=== PATIENT | female | born 1935 | race Two or more races ===

== ENCOUNTER 2020-05-06 12:38 | Inpatient (IN) | payer MEDICAID ==
[~2020-05-06] VITALS: Ht 149.9 cm; Wt 52.2 kg
[2020-05-06] MEDS ORDERED: LABETALOL HCL 5 MG/ML 4ML SYRINGE IV ONE ×2 (13:00→14:45)
[2020-05-06] MEDS ORDERED: SODIUM CHLORIDE 0.9% 1,000 ML IV ONE (13:00)
[2020-05-06 13:37] LABS: Basophils # (auto) 0 10 ^3/uL (0-0.2); Basophils % (auto) 0.5 % (0.0-2.0); Eosinophils # (auto) 0.6 10 ^3/uL (0-0.8); Eosinophils % (auto) 6.6 % (0.0-7.0); Hematocrit 42.8 % (36.0-46.0); Hemoglobin 14.2 g/dL (12.2-16.2); Lymphocytes # (auto) 2.7 10 ^3/uL (0.4-5.4); Lymphocytes % (auto) 28.8 % (10.0-50.0); Mean Corpuscular Hemoglobin 30.4 pg (28.0-32.0); Mean Corpuscular Hgb Conc. 33.1 g/dL (32.0-36.0); Mean Corpuscular Volume 91.9 fL (80.0-100.0); Monocytes # (auto) 0.5 10 ^3/uL (0-1.3); Monocytes % (auto) 5.2 % (0.0-12.0); Neutrophils # (auto) 5.5 10 ^3/uL (1.6-8.6); Neutrophils % (auto) 58.9 % (37.0-80.0); Nucleated Red Blood Cells % 0.1 %; Platelet Count (auto) 229 10^3/uL (140-450); Red Blood Cells 4.66 10^6/uL (4.0-5.20); Red Cell Distribution Width 14.2 % (11.8-14.3); White Blood Cell 9.3 10^3/uL (4.4-10.8)
[2020-05-06 13:49] LABS: INR 1.02 (0.9-1.15); Partial Thromboplastin Time 27.3 sec (23.0-31.2)
[2020-05-06 13:52] LABS: Albumin 3.6 g/dL (3.4-5.0); Anion Gap 7 (5-15); Blood Urea Nitrogen 19 mg/dL (7-18); Calcium 8.6 mg/dL (8.5-10.1); Carbon Dioxide 24 mmol/L (21-32); Chloride 104 mmol/L (98-107); Glucose 171 mg/dL (74-106); Potassium 4.3 mmol/L (3.5-5.1); Sodium 135 mmol/L (136-145)
[2020-05-06] MEDS ORDERED: IOHEXOL 350 MG/ML 100ML IJ ONE (13:55)
[2020-05-06 13:57] LABS: Alanine Aminotransferase 18 U/L (13-56); Alkaline Phosphatase 67 U/L (45-117); Aspartate Aminotransferase 14 U/L (15-37); BUN/Creatinine Ratio 20.9; Bilirubin, Total 0.4 mg/dL (0.2-1.0); GFR African American 76 mL/min; GFR Non-African American 62 mL/min; Total Protein 7.6 g/dL (6.4-8.2)
[2020-05-06] MEDS ORDERED: ENALAPRILAT 1.25 MG/ML-1ML VIAL IV ONE (14:45)
[2020-05-06 15:13] LABS: Urine Bacteria NONE SEEN /hpf (None Seen); Urine Blood Negative /uL (Negative); Urine Specific Gravity 1.022 (1.001-1.035); Urine WBC <1 /hpf (0 - 5)
[2020-05-06] MEDS ORDERED: MORPHINE SULF INJ 2 MG/ML SYRINGE 1ML IV PRN (16:15)
[2020-05-06] MEDS ORDERED: DEXTROSE (50%) 50ML SYRG IV PRN (16:15)
[2020-05-06] MEDS ORDERED: LISINOPRIL 20 MG TAB PO ONE (16:15)
[2020-05-06] MEDS: amLODIPine BESYLATE 5 MG TAB PO SCH (16:15)
[2020-05-06] MEDS ORDERED: NITROGLYCERIN 0.4 MG SL TAB SL PRN (16:15)
[2020-05-06] MEDS: InsuLIN REG 1unit/0.01ml Soln (100units/ml) SC SCH ×2 (17:00→21:54)
[2020-05-06] MEDS: ACCU-CHEK COMFORT CURVE STRIP VI SCH ×2 (17:00→21:54)
[2020-05-07] MEDS: InsuLIN REG 1unit/0.01ml Soln (100units/ml) SC SCH ×3 (06:31→17:00)
[2020-05-07] MEDS: ACCU-CHEK COMFORT CURVE STRIP VI SCH ×3 (06:32→17:00)
[2020-05-07] MEDS ORDERED: LISINOPRIL 20 MG TAB PO SCH (10:00)
[2020-05-07] MEDS: amLODIPine BESYLATE 5 MG TAB PO SCH (10:10)
[2020-05-07] MEDS ORDERED: AML5T PO (18:49)
[2020-05-07] MEDS ORDERED: LISI-646 PO (18:49)
[2020-05-07] MEDS ORDERED: METO25TA5 PO (18:54)
[2020-05-07] MEDS ORDERED: METF-370 PO (18:54)
[2020-05-07 19:01] VITALS: BP 142/59
== END 2020-05-07 19:37 | disposition home or self-care (01) | DRG 199 ==
LOC: ER 12:38 → TELE 13:25
PROVIDERS: ADMIT Internal Medicine; ATTEND Internal Medicine
DX: I16.0 Hypertensive urgency (principal); I10 Essential (primary) hypertension; Z90.49 Acquired absence of other specified parts of digestive tract; E04.1 Nontoxic single thyroid nodule; Z79.84 Long term (current) use of oral hypoglycemic drugs; E11.9 Type 2 diabetes mellitus without complications; E66.01 Morbid (severe) obesity due to excess calories; R00.1 Bradycardia, unspecified; T50.905A Adverse effect of unspecified drugs, medicaments and biological substances, initial encounter
CPT/HCPCS: 36415; 70450; 71045; 71275; 80053; 81001; 82962; 83880; 84484; 85025; 85610; 85730; 93005; 93306; 96360; 99291; G0378; J1815; J3490

== ENCOUNTER → 2020-10-04 | Outpatient (CLI) | payer MEDICAID ==
[~2020-10-04] MED LIST: AML5T PO; LISI-646 PO; METF-370 PO; METO25TA5 PO
== END | disposition home or self-care (01) ==
LOC: Rad HDHVI 14:51
PROVIDERS: ATTEND Internal Medicine
DX: I73.9 Peripheral vascular disease, unspecified (principal); E78.5 Hyperlipidemia, unspecified
CPT/HCPCS: 93925

== ENCOUNTER 2020-11-25 19:20 | Inpatient (IN) | payer MEDICAID ==
[~2020-11-25] VITALS: Ht 139.7 cm; Wt 52.2 kg
[~2020-11-25 19:20] MED LIST changes: -LISI-646 PO; +LISI20TA28 PO
[2020-11-25 20:37] LABS: Basophils # (auto) 0.1 10 ^3/uL (0-0.2); Basophils % (auto) 0.7 % (0.0-2.0); Eosinophils # (auto) 0.1 10 ^3/uL (0-0.8); Eosinophils % (auto) 1.6 % (0.0-7.0); Hematocrit 37.2 % (36.0-46.0); Hemoglobin 12.3 g/dL (12.2-16.2); Lymphocytes # (auto) 2.5 10 ^3/uL (0.4-5.4); Lymphocytes % (auto) 28.1 % (10.0-50.0); Mean Corpuscular Hemoglobin 30.3 pg (28.0-32.0); Mean Corpuscular Hgb Conc. 33.1 g/dL (32.0-36.0); Mean Corpuscular Volume 91.6 fL (80.0-100.0); Monocytes # (auto) 0.8 10 ^3/uL (0-1.3); Monocytes % (auto) 8.9 % (0.0-12.0); Neutrophils # (auto) 5.3 10 ^3/uL (1.6-8.6); Neutrophils % (auto) 60.7 % (37.0-80.0); Nucleated Red Blood Cells % 0.2 %; Red Blood Cells 4.07 10^6/uL (4.0-5.20); Red Cell Distribution Width 14.3 % (11.8-14.3); White Blood Cell 8.8 10^3/uL (4.4-10.8)
[2020-11-25 21:00] LABS: Albumin 3.6 g/dL (3.4-5.0); Anion Gap 9 (5-15); Blood Urea Nitrogen 15 mg/dL (7-18); Calcium 8.7 mg/dL (8.5-10.1); Carbon Dioxide 24 mmol/L (21-32); Chloride 102 mmol/L (98-107); Glucose 191 mg/dL (74-106); Potassium 3.7 mmol/L (3.5-5.1); Sodium 135 mmol/L (136-145)
[2020-11-25 21:02] LABS: Alanine Aminotransferase 17 U/L (13-56); Aspartate Aminotransferase 13 U/L (15-37); BUN/Creatinine Ratio 13.9; GFR African American 62 mL/min; GFR Non-African American 51 mL/min
[2020-11-25 21:03] LABS: CRP High Sensitivity 0.45 mg/dL (< 0.3); Magnesium 1.8 mg/dL (1.6-2.6)
[2020-11-25 21:07] LABS: Alkaline Phosphatase 79 U/L (45-117); Bilirubin, Total 0.4 mg/dL (0.2-1.0); Total Protein 7.7 g/dL (6.4-8.2)
[2020-11-25 23:49] LABS: Lactic Acid w/Reflex 2.2 mmol/L (0.4-2.0)
[2020-11-26 02:10] LABS: Urine Bacteria NONE SEEN /hpf (None Seen); Urine Blood Negative /uL (Negative); Urine Specific Gravity 1.009 (1.001-1.035); Urine WBC 2 /hpf (0 - 5)
[2020-11-26] MEDS ORDERED: ENALAPRILAT 1.25 MG/ML-1ML VIAL IV ONE (04:30)
[2020-11-26] MEDS ORDERED: FUROSEMIDE 20 MG/2 ML VIAL IV ONE (04:30)
[2020-11-26] MEDS ORDERED: NITROGLYCERIN 0.4MG/HR TOPICAL PATCH TD ONE (04:30)
[2020-11-26] MEDS ORDERED: MORPHINE SULFATE INJECTION 2 MG/ML SYRG IV PRN (05:15)
[2020-11-26] MEDS ORDERED: ALBUTEROL SULF 2.5 MG/0.5ML(0.5%) NEB SOLN NEB PRN (05:15)
[2020-11-26] MEDS ORDERED: NITROGLYCERIN 0.4 MG SL TAB SL PRN (05:15)
[2020-11-26] MEDS ORDERED: DEXTROSE (50%) 50ML SYRG IV PRN (05:45)
[2020-11-26 06:59] VITALS: BP 131/64
[2020-11-26] MEDS: InsuLIN REG 1unit/0.01ml Soln (100units/ml) SC SCH ×4 (07:00→22:00)
[2020-11-26] MEDS: ACCU-CHEK COMFORT CURVE STRIP VI SCH ×4 (07:06→22:00)
[2020-11-26 08:50] LABS: BUN/Creatinine Ratio 17.9; Calcium 8.2 mg/dL (8.5-10.1); Potassium 3.5 mmol/L (3.5-5.1)
[2020-11-26] MEDS: FUROSEMIDE 20 MG/2 ML VIAL IV SCH ×2 (10:00→22:00)
[2020-11-26] MEDS: LISINOPRIL 20 MG TAB PO SCH (10:00)
[2020-11-26] MEDS: amLODIPine BESYLATE 5 MG TAB PO SCH ×2 (10:00→22:00)
[2020-11-26 10:15] VITALS: BP 131/66
[2020-11-26 10:30] VITALS: BP 107/55
[2020-11-26] MEDS ORDERED: ASPI1TAB20 PO (11:37)
[2020-11-26] MEDS ORDERED: AMLO-489 PO (11:37)
[2020-11-26] MEDS ORDERED: METO-158 PO (11:37)
[2020-11-26] MEDS ORDERED: MAGN400T40 PO (11:37)
[2020-11-26] MEDS ORDERED: CILO100T PO (11:37)
[2020-11-26] MEDS ORDERED: HYDR25TA4 PO (11:37)
[2020-11-26] MEDS ORDERED: CHLO25TA2 PO (11:37)
[2020-11-26] MEDS ORDERED: ATOR20TA50 PO (11:37)
[2020-11-26 16:44] VITALS: BP 126/62
[2020-11-26 22:03] VITALS: BP 124/61
[2020-11-27 05:11] VITALS: BP 135/66
[2020-11-27] MEDS: ACCU-CHEK COMFORT CURVE STRIP VI SCH ×4 (06:21→22:00)
[2020-11-27] MEDS: InsuLIN REG 1unit/0.01ml Soln (100units/ml) SC SCH ×4 (06:21→22:00)
[2020-11-27 06:54] LABS: Basophils # (auto) 0 10 ^3/uL (0-0.2); Basophils % (auto) 0.6 % (0.0-2.0); Eosinophils # (auto) 0.2 10 ^3/uL (0-0.8); Eosinophils % (auto) 2.7 % (0.0-7.0); Hematocrit 35.8 % (36.0-46.0); Hemoglobin 12.1 g/dL (12.2-16.2); Lymphocytes # (auto) 2.3 10 ^3/uL (0.4-5.4); Lymphocytes % (auto) 28.6 % (10.0-50.0); Mean Corpuscular Hemoglobin 31.1 pg (28.0-32.0); Mean Corpuscular Volume 91.5 fL (80.0-100.0); Monocytes # (auto) 0.9 10 ^3/uL (0-1.3); Monocytes % (auto) 11.6 % (0.0-12.0); Neutrophils # (auto) 4.5 10 ^3/uL (1.6-8.6); Neutrophils % (auto) 56.5 % (37.0-80.0); Nucleated Red Blood Cells % 0.1 %; Red Blood Cells 3.91 10^6/uL (4.0-5.20); Red Cell Distribution Width 14.2 % (11.8-14.3)
[2020-11-27 06:59] LABS: Calcium 8.3 mg/dL (8.5-10.1); Magnesium 1.8 mg/dL (1.6-2.6); Potassium 3.4 mmol/L (3.5-5.1)
[2020-11-27 07:00] LABS: BUN/Creatinine Ratio 19.7
[2020-11-27 08:00] VITALS: BP 124/61
[2020-11-27 09:00] VITALS: BP 124/63
[2020-11-27] MEDS: FUROSEMIDE 20 MG/2 ML VIAL IV SCH ×2 (09:21→17:03)
[2020-11-27] MEDS: amLODIPine BESYLATE 5 MG TAB PO SCH ×2 (09:21→22:00)
[2020-11-27] MEDS: LISINOPRIL 20 MG TAB PO SCH (09:22)
[2020-11-27] MEDS ORDERED: VANCOMYCIN PER PHARMACY 0 MG IV SCH (11:30)
[2020-11-27] MEDS: ENOXAPARIN SOD 40 MG/0.4 ML SYRINGE SC SCH (11:55)
[2020-11-27 13:00] VITALS: BP 131/60
[2020-11-27] MEDS: VANCOMYCIN 500 MG in D5W 5% 100 ML IV SCH ×2 (13:26→23:00)
[2020-11-27] MEDS ORDERED: IOHEXOL 350 MG/ML 100ML IJ ONE (14:51)
[2020-11-27 17:00] VITALS: BP 122/61
[2020-11-27 22:18] VITALS: BP 125/63
[2020-11-28 05:11] VITALS: BP 133/56
[2020-11-28] MEDS: FUROSEMIDE 20 MG/2 ML VIAL IV SCH ×2 (06:00→17:32)
[2020-11-28] MEDS: InsuLIN REG 1unit/0.01ml Soln (100units/ml) SC SCH ×3 (06:44→17:34)
[2020-11-28] MEDS: ACCU-CHEK COMFORT CURVE STRIP VI SCH ×3 (06:44→17:32)
[2020-11-28 07:36] LABS: INR 1.03 (0.9-1.15)
[2020-11-28 09:00] VITALS: BP 112/55
[2020-11-28] MEDS: VANCOMYCIN 500 MG in D5W 5% 100 ML IV SCH (09:02)
[2020-11-28] MEDS: ENOXAPARIN SOD 40 MG/0.4 ML SYRINGE SC SCH (09:03)
[2020-11-28] MEDS: LISINOPRIL 20 MG TAB PO SCH (09:03)
[2020-11-28] MEDS: amLODIPine BESYLATE 5 MG TAB PO SCH (09:03)
[2020-11-28] MEDS ORDERED: levoFLOXacin 500 MG TAB PO ONE (10:30)
[2020-11-28 11:21] LABS: Calcium 8.4 mg/dL (8.5-10.1); Potassium 3.2 mmol/L (3.5-5.1)
[2020-11-28 11:23] LABS: BUN/Creatinine Ratio 15.2
[2020-11-28 13:00] VITALS: BP 106/55
[2020-11-28 16:30] VITALS: BP 137/60
[2020-11-28] MEDS ORDERED: HYDROcodone-ACET 5/325MG TAB PO PRN (17:15)
[2020-11-28 20:09] VITALS: BP 108/51
[2020-11-29] MEDS ORDERED: levoFLOXacin 250 MG TAB PO SCH (10:00)
[2020-11-29] MEDS ORDERED: levoFLOXacin 500 MG TAB PO SCH (10:00)
[2020-11-29] MEDS ORDERED: POTASSIUM CHL 20 Meq TABLET PO SCH (10:00)
[2020-11-29] MEDS ORDERED: ENOXAPARIN SOD 30 MG/0.3 ML SYRINGE SC SCH (10:00)
[2020-12-09] MEDS ORDERED: FAMO-12 PO (15:44)
[2020-12-09] MEDS ORDERED: METF-371 PO (15:44)
[2020-12-09] MEDS ORDERED: HYDR25TA5 PO (15:44)
[2020-12-09] MEDS ORDERED: DAPA1TAB4 PO (15:44)
[2020-12-09] MEDS ORDERED: ACET-1156 PO (15:44)
[2020-12-09] MEDS ORDERED: CHLO25TA2 PO (15:44)
[2020-12-09] MEDS ORDERED: BENA10TA15 PO (15:44)
[2020-12-09] MEDS ORDERED: CILO50TA PO (15:44)
== END 2020-11-28 21:29 | disposition home health service (06) | DRG 139 ==
LOC: ER 19:20 → TELE 11-26 05:15 → TELE-CENTR 11-26 10:56
PROVIDERS: ADMIT Internal Medicine; ATTEND Internal Medicine
DX: J18.9 Pneumonia, unspecified organism (principal); J96.01 Acute respiratory failure with hypoxia; I50.33 Acute on chronic diastolic (congestive) heart failure; R78.81 Bacteremia; J90 Pleural effusion, not elsewhere classified; B95.7 Other staphylococcus as the cause of diseases classified elsewhere; I11.0 Hypertensive heart disease with heart failure; I27.20 Pulmonary hypertension, unspecified; E11.51 Type 2 diabetes mellitus with diabetic peripheral angiopathy without gangrene; Z20.822 Contact with and (suspected) exposure to COVID-19; E87.6 Hypokalemia; E66.9 Obesity, unspecified; J98.11 Atelectasis; E78.00 Pure hypercholesterolemia, unspecified; E78.5 Hyperlipidemia, unspecified; Z90.49 Acquired absence of other specified parts of digestive tract; Z68.30 Body mass index [BMI] 30.0-30.9, adult; Z79.899 Other long term (current) drug therapy
CPT/HCPCS: 36415; 36600; 71045; 71275; 80048; 80053; 81001; 82805; 82962; 83605; 83735; 83880; 84484; 85025; 85379; 85610; 86141; 87040; 87077; 87186; 87426; 93005; 96374; 96375; 97163; G0378; J1815; J7060

== ENCOUNTER 2020-12-14 07:56 | Day surgery (SDC) | payer MEDICAID ==
[~2020-12-14] VITALS: Ht 137.2 cm; Wt 55.3 kg
[~2020-12-14 07:56] MED LIST changes: +ACET-1156 PO; -AML5T PO; +AMLO-489 PO; +ASPI-231 PO; +ATOR20TA50 PO; +BENA10TA9 PO; +CHLO25TA2 PO; +CILO50TA PO; +DAPA1TAB4 PO; +FAMO-12 PO; +HYDR25TA5 PO; -LISI20TA28 PO; +MAGN400T40 PO; -METF-370 PO; +METF-371 PO; +METO-158 PO; -METO25TA5 PO
[2020-12-14] MEDS ORDERED: IODIXANOL 320MG/ML 100ML BTL IV ONE (09:33)
[2020-12-14] MEDS ORDERED: ANGIOMAX 250 MG VIAL IV ONE ×2 (09:33→11:34)
[2020-12-14] MEDS ORDERED: fentaNYL CITRATE 100 MCG/2 ML VL ONE ×2 (09:33→12:15)
[2020-12-14] MEDS ORDERED: MIDAZOLAM HCL 1MG/1ML-2 ML VIAL ONE (09:33)
[2020-12-14] MEDS ORDERED: LIDOCAINE 2%HCL (LOCAL ANESTH.) INJ 20ML MDV ONE (09:33)
[2020-12-14] MEDS ORDERED: SODIUM CHL 0.9% 50 ML ONE ×2 (09:34→11:34)
[2020-12-14] MEDS ORDERED: NITROGLYCERIN 5MG/ML 10ML VIAL IV ONE (09:35)
[2020-12-14] MEDS ORDERED: CLOPIDOGREL 300 MG TAB ONE (12:14)
[2020-12-14] MEDS ORDERED: ASPirin 81 mg TAB ONE (12:14)
[2020-12-14] MEDS ORDERED: ACETAMINOPHEN 500 MG TAB PO PRN (13:15)
[2020-12-14] MEDS ORDERED: ONDANSETRON HCL 4 MG/2 ML VIAL IV PRN (13:15)
== END 2020-12-14 17:02 | disposition home or self-care (01) ==
LOC: CATH 07:56
PROVIDERS: ATTEND Internal Medicine
DX: I70.212 Atherosclerosis of native arteries of extremities with intermittent claudication, left leg (principal); I25.10 Atherosclerotic heart disease of native coronary artery without angina pectoris; I10 Essential (primary) hypertension; E78.5 Hyperlipidemia, unspecified; E11.9 Type 2 diabetes mellitus without complications; Z98.890 Other specified postprocedural states; Z79.899 Other long term (current) drug therapy; Z79.82 Long term (current) use of aspirin
CPT/HCPCS: 37224; 37228; 75716; C1725; C1760; C1769; C1887; C1894; J0583; J1644; J2250; J3010; J7030; Q9967; 99152; 99153; J3490

== ENCOUNTER → 2021-01-13 | Outpatient (CLI) | payer MEDICAID ==
[2021-01-13 09:10] VITALS: BP 142/62
[2021-01-13 09:15] VITALS: BP 142/62
[2021-01-13 11:29] LABS: Basophils # (auto) 0.1 10 ^3/uL (0-0.2); Basophils % (auto) 0.7 % (0.0-2.0); Eosinophils # (auto) 0.3 10 ^3/uL (0-0.8); Hematocrit 39.8 % (36.0-46.0); Hemoglobin 13.5 g/dL (12.2-16.2); Lymphocytes # (auto) 3.1 10 ^3/uL (0.4-5.4); Lymphocytes % (auto) 35.4 % (10.0-50.0); Mean Corpuscular Hemoglobin 30.9 pg (28.0-32.0); Mean Corpuscular Hgb Conc. 33.9 g/dL (32.0-36.0); Mean Corpuscular Volume 91.3 fL (80.0-100.0); Monocytes # (auto) 0.6 10 ^3/uL (0-1.3); Monocytes % (auto) 7.1 % (0.0-12.0); Neutrophils # (auto) 4.6 10 ^3/uL (1.6-8.6); Neutrophils % (auto) 52.8 % (37.0-80.0); Platelet Count (auto) 233 10^3/uL (140-450); Red Blood Cells 4.36 10^6/uL (4.0-5.20); White Blood Cell 8.6 10^3/uL (4.4-10.8)
[2021-01-13 11:41] LABS: INR 0.97 (0.9-1.15); Partial Thromboplastin Time 26.8 sec (23.0-31.2)
[2021-01-13 11:46] LABS: Potassium 3.7 mmol/L (3.5-5.1)
[2021-01-13 11:50] LABS: BUN/Creatinine Ratio 25.3; Calcium 9.1 mg/dL (8.5-10.1)
== END | disposition home or self-care (01) ==
LOC: Rad HDHVI 08:54
PROVIDERS: ATTEND Internal Medicine
DX: I70.0 Atherosclerosis of aorta (principal); I51.7 Cardiomegaly; Z01.812 Encounter for preprocedural laboratory examination
CPT/HCPCS: 36415; 71046; 80048; 85025; 85610; 85730; G0463

== ENCOUNTER → 2021-02-17 | Outpatient (CLI) | payer MEDICAID | END | disposition home or self-care (01) | LOC: Rad HDHVI 15:07 | PROVIDERS: ATTEND Internal Medicine | DX: I10 Essential (primary) hypertension (principal); E78.5 Hyperlipidemia, unspecified | CPT/HCPCS: 93925 ==

== ENCOUNTER 2021-02-24 11:01 | Emergency (ER) | payer MEDICAID ==
[~2021-02-24] VITALS: Ht 137.2 cm; Wt 53.1 kg
[2021-02-24 11:56] LABS: Basophils # (auto) 0.1 10 ^3/uL (0-0.2); Basophils % (auto) 0.7 % (0.0-2.0); Eosinophils # (auto) 0.1 10 ^3/uL (0-0.8); Eosinophils % (auto) 1.9 % (0.0-7.0); Hematocrit 37.4 % (36.0-46.0); Hemoglobin 12.9 g/dL (12.2-16.2); Lymphocytes # (auto) 2.5 10 ^3/uL (0.4-5.4); Lymphocytes % (auto) 33.2 % (10.0-50.0); Mean Corpuscular Hemoglobin 30.3 pg (28.0-32.0); Mean Corpuscular Hgb Conc. 34.5 g/dL (32.0-36.0); Mean Corpuscular Volume 87.9 fL (80.0-100.0); Monocytes # (auto) 0.5 10 ^3/uL (0-1.3); Monocytes % (auto) 7.3 % (0.0-12.0); Neutrophils # (auto) 4.2 10 ^3/uL (1.6-8.6); Neutrophils % (auto) 56.9 % (37.0-80.0); Nucleated Red Blood Cells % 0.1 %; Red Blood Cells 4.26 10^6/uL (4.0-5.20); Red Cell Distribution Width 14.1 % (11.8-14.3); White Blood Cell 7.5 10^3/uL (4.4-10.8)
[2021-02-24 12:09] LABS: Urine Bacteria NONE SEEN /hpf (None Seen); Urine Blood Negative /uL (Negative); Urine Specific Gravity 1.011 (1.001-1.035); Urine WBC 2 /hpf (0 - 5)
[2021-02-24 12:18] LABS: Blood Urea Nitrogen 15 mg/dL (7-18); Chloride 87 mmol/L (98-107); Glucose 230 mg/dL (74-106); Potassium 3.7 mmol/L (3.5-5.1); Sodium 122 mmol/L (136-145)
[2021-02-24 12:31] LABS: Alanine Aminotransferase 20 U/L (13-56); Albumin 4.2 g/dL (3.4-5.0); Anion Gap 9 (5-15); BUN/Creatinine Ratio 19.2; Calcium 8.8 mg/dL (8.5-10.1); Carbon Dioxide 26 mmol/L (21-32); GFR African American 90 mL/min; GFR Non-African American 74 mL/min; Total Protein 7.8 g/dL (6.4-8.2)
[2021-02-24 12:51] LABS: Alkaline Phosphatase 75 U/L (45-117); Aspartate Aminotransferase 16 U/L (15-37); Bilirubin, Total 0.7 mg/dL (0.2-1.0)
[2021-02-24] MEDS ORDERED: SODIUM CHLORIDE 0.9% 1,000 ML IV ONE (15:45)
[2021-02-24 18:26] VITALS: BP 130/61
== END 2021-02-24 18:27 | disposition home or self-care (01) ==
LOC: ER 11:01
DX: E87.1 Hypo-osmolality and hyponatremia (principal); E86.0 Dehydration; I10 Essential (primary) hypertension; E11.9 Type 2 diabetes mellitus without complications; E78.5 Hyperlipidemia, unspecified; Z90.49 Acquired absence of other specified parts of digestive tract
CPT/HCPCS: 36415; 71045; 80053; 81001; 84484; 85025; 93005; 96360; 99285; J7030

== ENCOUNTER 2021-05-13 18:24 | Inpatient (IN) | payer MEDICAID ==
[~2021-05-13] VITALS: Ht 134.6 cm; Wt 107.3 kg
[~2021-05-13 18:24] MED LIST changes: -ASPI-231 PO; +ASPI1TAB20 PO; +BENA10TA15 PO; -BENA10TA9 PO
[2021-05-13] MEDS ORDERED: ACETAMINOPHEN 325 MG TAB PO ONE (20:45)
[2021-05-13 21:16] LABS: Basophils # (auto) 0 10 ^3/uL (0-0.2); Basophils % (auto) 0.1 % (0.0-2.0); Eosinophils # (auto) 0 10 ^3/uL (0-0.8); Eosinophils % (auto) 0.1 % (0.0-7.0); Hematocrit 41.4 % (36.0-46.0); Hemoglobin 13.5 g/dL (12.2-16.2); Lymphocytes # (auto) 0.8 10 ^3/uL (0.4-5.4); Lymphocytes % (auto) 5.6 % (10.0-50.0); Mean Corpuscular Hemoglobin 29.8 pg (28.0-32.0); Mean Corpuscular Hgb Conc. 32.6 g/dL (32.0-36.0); Mean Corpuscular Volume 91.5 fL (80.0-100.0); Monocytes # (auto) 0.9 10 ^3/uL (0-1.3); Monocytes % (auto) 6.1 % (0.0-12.0); Neutrophils # (auto) 12.4 10 ^3/uL (1.6-8.6); Neutrophils % (auto) 88.1 % (37.0-80.0); Red Blood Cells 4.52 10^6/uL (4.0-5.20); Red Cell Distribution Width 14.1 % (11.8-14.3)
[2021-05-13 21:23] LABS: Urine Bacteria FEW /hpf (None Seen); Urine WBC 11 /hpf (0 - 5)
[2021-05-13 21:28] LABS: Albumin 2.5 g/dL (3.4-5.0); Anion Gap 8 (5-15); Blood Urea Nitrogen 29 mg/dL (7-18); Calcium 7.9 mg/dL (8.5-10.1); Carbon Dioxide 25 mmol/L (21-32); Chloride 92 mmol/L (98-107); Glucose 390 mg/dL (74-106); Lipase 243 U/L (73-393); Magnesium 1.4 mg/dL (1.6-2.6); Potassium 4.2 mmol/L (3.5-5.1); Sodium 125 mmol/L (136-145)
[2021-05-13 21:32] LABS: Urine Blood Normal /uL (Negative); Urine Specific Gravity 1.023 (1.001-1.035)
[2021-05-13 21:35] LABS: Alanine Aminotransferase 22 U/L (13-56); Alkaline Phosphatase 70 U/L (45-117); Aspartate Aminotransferase 7 U/L (15-37); BUN/Creatinine Ratio 23.8; Bilirubin, Total 0.2 mg/dL (0.2-1.0); GFR African American 54 mL/min; GFR Non-African American 44 mL/min; Total Protein 5.8 g/dL (6.4-8.2)
[2021-05-13] MEDS ORDERED: INSULIN LISPRO (HUMAN) 100 UNITS/ML ML SC ONE (21:45)
[2021-05-13] MEDS ORDERED: SODIUM CHLORIDE 0.9% 1,000 ML IV ONE (21:45)
[2021-05-13] MEDS ORDERED: cefTRIAXone 1GM/50ML D5W 50 ML IV ONE (22:00)
[2021-05-14] MEDS ORDERED: MORPHINE SULFATE INJECTION 2 MG/ML SYRG IV PRN ×2
[2021-05-14] MEDS ORDERED: NITROGLYCERIN 0.4 MG SL TAB SL PRN
[2021-05-14] MEDS ORDERED: ACETAMINOPHEN 325 MG TAB PO PRN
[2021-05-14] MEDS ORDERED: ONDANSETRON HCL 4 MG/2 ML VIAL IV PRN
[2021-05-14] MEDS ORDERED: SODIUM CHLORIDE 0.9% 1,000 ML IV ONE
[2021-05-14] MEDS: MAGNESIUM SULFATE 1GM/100ML 100 ML IV SCH ×3 (00:31→03:39)
[2021-05-14] MEDS ORDERED: DEXTROSE (50%) 50ML SYRG IV PRN (03:30)
[2021-05-14] MEDS: metroNIDAZOLE 500MG/100ML 100 ML IV SCH ×3 (05:45→21:08)
[2021-05-14] MEDS: ACCU-CHEK COMFORT CURVE STRIP VI SCH ×4 (06:45→21:08)
[2021-05-14] MEDS: InsuLIN REG 1unit/0.01ml Soln (100units/ml) SC SCH ×4 (06:50→21:10)
[2021-05-14] MEDS: cefTRIAXone 1GM/50ML D5W 50 ML IV SCH (09:42)
[2021-05-14 10:19] LABS: Hemoglobin 13.2 g/dL (12.2-16.2); White Blood Cell 13.6 10^3/uL (4.4-10.8)
[2021-05-14 10:37] LABS: Hematocrit 39.6 % (36.0-46.0); Mean Corpuscular Hemoglobin 30.6 pg (28.0-32.0); Mean Corpuscular Hgb Conc. 33.4 g/dL (32.0-36.0); Mean Corpuscular Volume 91.7 fL (80.0-100.0); Red Blood Cells 4.33 10^6/uL (4.0-5.20); Red Cell Distribution Width 14.3 % (11.8-14.3)
[2021-05-14 10:40] LABS: Basophils % (manual) 0 (0.0-2.0); Blast Cells 0; Eosinophils % (manual) 0 (0-7); Metamyelocytes % 0; Myelocytes % 0; Promyelocytes % 0; Reactive Lymphocytes 0
[2021-05-14 10:47] LABS: Albumin 2.3 g/dL (3.4-5.0); Calcium 7.7 mg/dL (8.5-10.1); Potassium 3.8 mmol/L (3.5-5.1)
[2021-05-14 10:51] LABS: BUN/Creatinine Ratio 18.8; Bilirubin, Total 0.3 mg/dL (0.2-1.0); Total Protein 5.8 g/dL (6.4-8.2)
[2021-05-14 14:41] LABS: Band Neutrophils % (manual) 8; Lymphocytes % (manual) 11 (10.0-50.0); Monocytes % (manual) 4 (0-12)
[2021-05-15 01:04] VITALS: BP 141/61
[2021-05-15 05:00] VITALS: BP 118/50
[2021-05-15] MEDS: metroNIDAZOLE 500MG/100ML 100 ML IV SCH ×2 (05:56→21:35)
[2021-05-15] MEDS: InsuLIN REG 1unit/0.01ml Soln (100units/ml) SC SCH ×4 (06:06→21:36)
[2021-05-15] MEDS: ACCU-CHEK COMFORT CURVE STRIP VI SCH ×4 (06:06→21:35)
[2021-05-15 09:00] VITALS: BP 112/46
[2021-05-15] MEDS: cefTRIAXone 1GM/50ML D5W 50 ML IV SCH (09:42)
[2021-05-15 13:00] VITALS: BP 118/52
[2021-05-15 16:17] VITALS: BP 113/52
[2021-05-15 22:00] VITALS: BP 131/68
[2021-05-16 05:00] VITALS: BP 98/49
[2021-05-16] MEDS: ACCU-CHEK COMFORT CURVE STRIP VI SCH ×4 (06:24→22:36)
[2021-05-16] MEDS: metroNIDAZOLE 500MG/100ML 100 ML IV SCH ×3 (06:24→22:31)
[2021-05-16] MEDS: InsuLIN REG 1unit/0.01ml Soln (100units/ml) SC SCH ×4 (06:25→22:37)
[2021-05-16 06:44] LABS: BUN/Creatinine Ratio 14.6; Calcium 7.5 mg/dL (8.5-10.1); Magnesium 1.5 mg/dL (1.6-2.6); Potassium 3.2 mmol/L (3.5-5.1)
[2021-05-16 06:48] LABS: Basophils # (auto) 0 10 ^3/uL (0-0.2); Basophils % (auto) 0.2 % (0.0-2.0); Eosinophils # (auto) 0 10 ^3/uL (0-0.8); Eosinophils % (auto) 0.4 % (0.0-7.0); Hemoglobin 12.9 g/dL (12.2-16.2); Lymphocytes # (auto) 1.5 10 ^3/uL (0.4-5.4); Lymphocytes % (auto) 22.6 % (10.0-50.0); Mean Corpuscular Hemoglobin 30.9 pg (28.0-32.0); Mean Corpuscular Hgb Conc. 33.9 g/dL (32.0-36.0); Monocytes # (auto) 0.5 10 ^3/uL (0-1.3); Monocytes % (auto) 7.8 % (0.0-12.0); Neutrophils # (auto) 4.7 10 ^3/uL (1.6-8.6); Red Blood Cells 4.18 10^6/uL (4.0-5.20); Red Cell Distribution Width 14.5 % (11.8-14.3); White Blood Cell 6.8 10^3/uL (4.4-10.8)
[2021-05-16 09:00] VITALS: BP 120/59
[2021-05-16] MEDS: cefTRIAXone 1GM/50ML D5W 50 ML IV SCH (11:39)
[2021-05-16 13:00] VITALS: BP 132/62
[2021-05-16 17:00] VITALS: BP 104/45
[2021-05-17 05:00] VITALS: BP 126/52
[2021-05-17] MEDS: ACCU-CHEK COMFORT CURVE STRIP VI SCH ×4 (06:19→21:22)
[2021-05-17] MEDS: InsuLIN REG 1unit/0.01ml Soln (100units/ml) SC SCH ×4 (06:19→21:36)
[2021-05-17] MEDS: metroNIDAZOLE 500MG/100ML 100 ML IV SCH ×3 (06:19→21:22)
[2021-05-17 09:00] VITALS: BP 118/64
[2021-05-17] MEDS: cefTRIAXone 1GM/50ML D5W 50 ML IV SCH (10:08)
[2021-05-17 13:00] VITALS: BP 131/66
[2021-05-17 17:00] VITALS: BP 141/71
[2021-05-17 22:00] VITALS: BP 129/64
[2021-05-18 05:00] VITALS: BP 112/60
[2021-05-18] MEDS: metroNIDAZOLE 500MG/100ML 100 ML IV SCH ×2 (06:04→14:00)
[2021-05-18] MEDS: ACCU-CHEK COMFORT CURVE STRIP VI SCH ×3 (06:04→17:00)
[2021-05-18] MEDS: InsuLIN REG 1unit/0.01ml Soln (100units/ml) SC SCH ×3 (06:05→17:00)
[2021-05-18 08:35] VITALS: BP 113/57
[2021-05-18] MEDS: cefTRIAXone 1GM/50ML D5W 50 ML IV SCH (11:00)
[2021-05-18 12:55] VITALS: BP 119/60
[2021-05-18 15:31] VITALS: BP 119/60
[2021-05-18 16:38] VITALS: BP 120/57
== END 2021-05-18 17:16 | disposition home health service (06) | DRG 249 ==
LOC: ER 18:25 → TELE 05-14 00:16 → TELE-CENTR 05-14 22:50 → TELE-EAST 05-15 16:24
PROVIDERS: ADMIT Internal Medicine; ATTEND Internal Medicine
DX: K52.9 Noninfective gastroenteritis and colitis, unspecified (principal); I11.0 Hypertensive heart disease with heart failure; N12 Tubulo-interstitial nephritis, not specified as acute or chronic; E87.1 Hypo-osmolality and hyponatremia; E88.09 Other disorders of plasma-protein metabolism, not elsewhere classified; I50.9 Heart failure, unspecified; N20.1 Calculus of ureter; M47.816 Spondylosis without myelopathy or radiculopathy, lumbar region; M76.01 Gluteal tendinitis, right hip; M70.71 Other bursitis of hip, right hip; K63.89 Other specified diseases of intestine; E11.65 Type 2 diabetes mellitus with hyperglycemia; D72.829 Elevated white blood cell count, unspecified; E83.42 Hypomagnesemia; E86.0 Dehydration; I25.10 Atherosclerotic heart disease of native coronary artery without angina pectoris; M16.10 Unilateral primary osteoarthritis, unspecified hip; F41.8 Other specified anxiety disorders; Z20.822 Contact with and (suspected) exposure to COVID-19; Z82.49 Family history of ischemic heart disease and other diseases of the circulatory system; Z83.3 Family history of diabetes mellitus; Z90.49 Acquired absence of other specified parts of digestive tract; Z95.5 Presence of coronary angioplasty implant and graft
CPT/HCPCS: 36415; 72100; 73502; 73721; 74176; 76705; 80048; 80053; 81001; 82378; 82962; 83690; 83735; 84484; 85007; 85025; 85027; 87086; 87426; 96361; 96365; 96372; G0378; J0696; J1815; J3490

== ENCOUNTER 2021-06-14 12:51 | Emergency (ER) | payer MEDICAID ==
[~2021-06-14] VITALS: Ht 137.2 cm; Wt 53.1 kg
[2021-06-14 15:09] LABS: Basophils # (auto) 0.1 10 ^3/uL (0-0.2); Basophils % (auto) 0.5 % (0.0-2.0); Eosinophils # (auto) 0.1 10 ^3/uL (0-0.8); Hematocrit 41.9 % (36.0-46.0); Hemoglobin 13.9 g/dL (12.2-16.2); Lymphocytes # (auto) 3.6 10 ^3/uL (0.4-5.4); Lymphocytes % (auto) 31.8 % (10.0-50.0); Mean Corpuscular Hemoglobin 30.2 pg (28.0-32.0); Mean Corpuscular Hgb Conc. 33.2 g/dL (32.0-36.0); Monocytes % (auto) 8.7 % (0.0-12.0); Neutrophils # (auto) 6.5 10 ^3/uL (1.6-8.6); Nucleated Red Blood Cells % 0.1 %; Red Blood Cells 4.61 10^6/uL (4.0-5.20); Red Cell Distribution Width 14.2 % (11.8-14.3); White Blood Cell 11.2 10^3/uL (4.4-10.8)
[2021-06-14 15:26] LABS: Albumin 3.3 g/dL (3.4-5.0); Calcium 8.8 mg/dL (8.5-10.1); Potassium 5.3 mmol/L (3.5-5.1)
[2021-06-14 15:32] LABS: BUN/Creatinine Ratio 14.9; Bilirubin, Total 0.5 mg/dL (0.2-1.0); Total Protein 6.5 g/dL (6.4-8.2)
[2021-06-14] MEDS ORDERED: SODIUM CHLORIDE 0.9% 500 ML IVB ONE (16:15)
[2021-06-14] MEDS ORDERED: SODIUM CHLORIDE 0.9% 1,000 ML IV ONE ×2 (16:15→17:30)
[2021-06-14] MEDS ORDERED: METOCLOPRAMIDE HCL 5MG/ml INJ 2ml VIAL IV ONE (16:15)
[2021-06-14 16:22] LABS: Urine Bacteria NONE SEEN /hpf (None Seen); Urine Blood Negative /uL (Negative); Urine Specific Gravity 1.009 (1.001-1.035); Urine WBC 1 /hpf (0 - 5)
[2021-06-14 23:15] VITALS: BP 187/71
== END 2021-06-14 23:18 | disposition home or self-care (01) ==
LOC: ER 12:51
DX: K52.9 Noninfective gastroenteritis and colitis, unspecified (principal); E86.0 Dehydration; I10 Essential (primary) hypertension; E11.9 Type 2 diabetes mellitus without complications; E87.5 Hyperkalemia; E46 Unspecified protein-calorie malnutrition; E78.5 Hyperlipidemia, unspecified; Z68.28 Body mass index [BMI] 28.0-28.9, adult; Z90.49 Acquired absence of other specified parts of digestive tract; Z79.82 Long term (current) use of aspirin; Z79.899 Other long term (current) drug therapy
CPT/HCPCS: 36415; 71046; 74176; 80053; 81001; 83690; 83735; 83880; 84443; 84484; 85025; 93005; 96361; 96374; 99285; J2765; J7040

== ENCOUNTER 2021-06-22 09:34 | Inpatient (IN) | payer MEDICAID ==
[~2021-06-22] VITALS: Ht 132.1 cm; Wt 52.0 kg
[2021-06-22 10:49] LABS: Basophils # (auto) 0 10 ^3/uL (0-0.2); Basophils % (auto) 0.7 % (0.0-2.0); Eosinophils # (auto) 0.1 10 ^3/uL (0-0.8); Hematocrit 44.1 % (36.0-46.0); Lymphocytes # (auto) 2.2 10 ^3/uL (0.4-5.4); Lymphocytes % (auto) 31.1 % (10.0-50.0); Mean Corpuscular Hemoglobin 30.5 pg (28.0-32.0); Mean Corpuscular Hgb Conc. 33.9 g/dL (32.0-36.0); Monocytes # (auto) 0.5 10 ^3/uL (0-1.3); Monocytes % (auto) 7.4 % (0.0-12.0); Neutrophils # (auto) 4.2 10 ^3/uL (1.6-8.6); Neutrophils % (auto) 59.8 % (37.0-80.0); Nucleated Red Blood Cells % 0.1 %; Red Cell Distribution Width 14.1 % (11.8-14.3)
[2021-06-22 11:03] LABS: Albumin 3.7 g/dL (3.4-5.0); Potassium 3.5 mmol/L (3.5-5.1)
[2021-06-22 11:13] LABS: Total Protein 7.6 g/dL (6.4-8.2)
[2021-06-22] MEDS ORDERED: MORPHINE SULFATE INJECTION 2 MG/ML SYRG IV ONE (11:45)
[2021-06-22] MEDS ORDERED: ONDANSETRON HCL 4 MG/2 ML VIAL IV ONE (11:45)
[2021-06-22] MEDS ORDERED: SODIUM CHLORIDE 0.9% 1,000 ML IV ONE (11:45)
[2021-06-22 12:38] LABS: Urine Bacteria FEW /hpf (None Seen); Urine Blood Negative /uL (Negative); Urine Specific Gravity 1.005 (1.001-1.035); Urine WBC 2 /hpf (0 - 5)
[2021-06-22] MEDS ORDERED: HYDROcodone-ACET 5/325MG TAB PO PRN (14:00)
[2021-06-22] MEDS ORDERED: hydrALAZINE HCL 20 MG/ML VL IV PRN (14:00)
[2021-06-22] MEDS ORDERED: ACETAMINOPHEN 325 MG TAB PO PRN (14:00)
[2021-06-22] MEDS: SODIUM CHLORIDE 0.9% 1,000 ML IV SCH ×2 (14:19→23:47)
[2021-06-22 14:50] LABS: BUN/Creatinine Ratio 12.2; Calcium 8.4 mg/dL (8.5-10.1); Potassium 3.5 mmol/L (3.5-5.1)
[2021-06-22] MEDS: PANTOPRAZOLE 40 MG/10 ML VIAL INJ IV SCH ×2 (15:47→21:36)
[2021-06-22] MEDS: SUCRALFATE 1 GM/10 ML ORAL SUSP PO SCH ×2 (15:49→21:36)
[2021-06-22] MEDS: cefTRIAXone 1GM/50ML D5W 50 ML IV SCH (15:49)
[2021-06-22 17:05] LABS: INR 0.99 (0.9-1.15)
[2021-06-22 17:31] VITALS: BP 133/55
[2021-06-22 19:23] LABS: Calcium 8.5 mg/dL (8.5-10.1); Potassium 3.7 mmol/L (3.5-5.1)
[2021-06-22 19:26] LABS: BUN/Creatinine Ratio 11.9
[2021-06-22] MEDS: METOPROLOL TARTRATE 25 MG TAB PO SCH (21:46)
[2021-06-22 22:00] VITALS: BP 99/48
[2021-06-22 22:48] LABS: BUN/Creatinine Ratio 7.6; Calcium 8.2 mg/dL (8.5-10.1); Potassium 3.3 mmol/L (3.5-5.1)
[2021-06-22] MEDS: BENAZEPRIL HCL 10 MG TAB PO SCH (22:57)
[2021-06-23] VITALS (7 sets, daily range): BP systolic 101–122; BP diastolic 50–79
[2021-06-23 02:16] LABS: BUN/Creatinine Ratio 11.9; Potassium 3.3 mmol/L (3.5-5.1)
[2021-06-23] MEDS: SUCRALFATE 1 GM/10 ML ORAL SUSP PO SCH ×3 (05:36→17:56)
[2021-06-23 07:10] LABS: BUN/Creatinine Ratio 12.5; Calcium 7.9 mg/dL (8.5-10.1); Potassium 3.7 mmol/L (3.5-5.1)
[2021-06-23] MEDS ORDERED: SODIUM CHLORIDE 0.9% 1,000 ML IV ONE (08:00)
[2021-06-23] MEDS ORDERED: DEXTROSE (50%) 50ML SYRG IV PRN (08:00)
[2021-06-23] MEDS ORDERED: fentaNYL CITRATE 100 MCG/2 ML VL ONE (09:03)
[2021-06-23] MEDS ORDERED: MIDAZOLAM HCL 5 MG/ML-1ML VIAL ONE (09:03)
[2021-06-23] MEDS ORDERED: LIDOCAINE VISCOUS 2% 15ML UD ONE (09:03)
[2021-06-23] MEDS ORDERED: diphenhdrAMINE HCL 50 MG/1 ML VL ONE (09:03)
[2021-06-23] MEDS ORDERED: ASPirin 81 mg TAB PO SCH (10:00)
[2021-06-23] MEDS: BENAZEPRIL HCL 10 MG TAB PO SCH (10:00)
[2021-06-23] MEDS: SODIUM CHLORIDE 0.9% 1,000 ML IV SCH (10:00)
[2021-06-23] MEDS ORDERED: amLODIPine BESYLATE 5 MG TAB PO SCH (10:00)
[2021-06-23] MEDS: METOPROLOL TARTRATE 25 MG TAB PO SCH (10:00)
[2021-06-23] MEDS ORDERED: CILOSTAZOL 100 MG TAB PO SCH (10:00)
[2021-06-23] MEDS ORDERED: FAMOTIDINE 20 MG TAB PO SCH (10:00)
[2021-06-23] MEDS: PANTOPRAZOLE 40 MG/10 ML VIAL INJ IV SCH (10:31)
[2021-06-23] MEDS: cefTRIAXone 1GM/50ML D5W 50 ML IV SCH (10:31)
[2021-06-23 11:09] LABS: BUN/Creatinine Ratio 12.2; Calcium 7.6 mg/dL (8.5-10.1); Potassium 3.5 mmol/L (3.5-5.1)
[2021-06-23] MEDS: InsuLIN REG 1unit/0.01ml Soln (100units/ml) SC SCH ×2 (11:30→17:00)
[2021-06-23] MEDS: ACCU-CHEK COMFORT CURVE STRIP VI SCH ×2 (12:18→17:48)
[2021-06-23] MEDS ORDERED: SUCR1SUS10 PO (14:16)
[2021-06-23] MEDS ORDERED: PANT40T PO (14:16)
[2021-06-23 14:32] LABS: BUN/Creatinine Ratio 8.8; Calcium 7.7 mg/dL (8.5-10.1); Potassium 3.6 mmol/L (3.5-5.1)
== END 2021-06-23 19:04 | disposition home health service (06) | DRG 241 ==
LOC: ER 09:34 → TELE 13:51 → TELE-WESTW 17:19
PROVIDERS: ADMIT Internal Medicine; ATTEND Internal Medicine
PROC: 0DB68ZX Excision of Stomach, Via Natural or Artificial Opening Endoscopic, Diagnostic (ICD-10-PCS; principal; 2021-06-23 09:20)
DX: K25.9 Gastric ulcer, unspecified as acute or chronic, without hemorrhage or perforation (principal); E87.1 Hypo-osmolality and hyponatremia; E11.51 Type 2 diabetes mellitus with diabetic peripheral angiopathy without gangrene; I50.9 Heart failure, unspecified; I11.0 Hypertensive heart disease with heart failure; K29.70 Gastritis, unspecified, without bleeding; N39.0 Urinary tract infection, site not specified; Z20.822 Contact with and (suspected) exposure to COVID-19; K21.9 Gastro-esophageal reflux disease without esophagitis; E03.9 Hypothyroidism, unspecified; E78.5 Hyperlipidemia, unspecified; Z82.49 Family history of ischemic heart disease and other diseases of the circulatory system; Z90.49 Acquired absence of other specified parts of digestive tract
CPT/HCPCS: 36415; 43239; 71045; 73630; 74176; 80048; 80053; 81001; 82962; 84484; 85025; 85610; 86850; 86900; 86901; 87426; 96361; 96365; 96375; C9113; G0378; J0696; J2250; J2405

== ENCOUNTER 2021-06-30 18:05 | Inpatient (IN) | payer MEDICAID ==
[~2021-06-30] VITALS: Ht 137.2 cm; Wt 49.8 kg
[~2021-06-30 18:05] MED LIST changes: -CHLO25TA2 PO; -HYDR25TA5 PO; +PANT40T PO; +SUCR1SUS10 PO
[2021-06-30] MEDS ORDERED: SODIUM CHLORIDE 0.9% 1,000 ML IV ONE (19:15)
[2021-06-30] MEDS ORDERED: ONDANSETRON HCL 4 MG/2 ML VIAL IV ONE (19:15)
[2021-06-30 21:11] LABS: Basophils # (auto) 0.1 10 ^3/uL (0-0.2); Basophils % (auto) 0.7 % (0.0-2.0); Eosinophils # (auto) 0.2 10 ^3/uL (0-0.8); Hematocrit 44.5 % (36.0-46.0); Hemoglobin 15.2 g/dL (12.2-16.2); Lymphocytes # (auto) 3.5 10 ^3/uL (0.4-5.4); Lymphocytes % (auto) 45.2 % (10.0-50.0); Mean Corpuscular Hemoglobin 30.5 pg (28.0-32.0); Mean Corpuscular Hgb Conc. 34.3 g/dL (32.0-36.0); Monocytes % (auto) 12.7 % (0.0-12.0); Neutrophils # (auto) 3.1 10 ^3/uL (1.6-8.6); Neutrophils % (auto) 39.4 % (37.0-80.0); Nucleated Red Blood Cells % 0.1 %; Red Cell Distribution Width 13.9 % (11.8-14.3); White Blood Cell 7.8 10^3/uL (4.4-10.8)
[2021-06-30 21:37] LABS: Albumin 3.6 g/dL (3.4-5.0); Calcium 8.6 mg/dL (8.5-10.1); Magnesium 1.4 mg/dL (1.6-2.6); Potassium 3.6 mmol/L (3.5-5.1)
[2021-06-30 21:40] LABS: Bilirubin, Total 0.6 mg/dL (0.2-1.0); Total Protein 7.5 g/dL (6.4-8.2)
[2021-06-30 22:07] LABS: BUN/Creatinine Ratio 12.1
[2021-06-30] MEDS: SODIUM CHLORIDE 0.9% 1,000 ML IV SCH (23:00)
[2021-06-30] MEDS ORDERED: ACETAMINOPHEN 325 MG TAB PO PRN (23:00)
[2021-06-30] MEDS ORDERED: ONDANSETRON HCL 4 MG/2 ML VIAL IV PRN (23:00)
[2021-06-30] MEDS ORDERED: NITROGLYCERIN 0.4 MG SL TAB SL PRN (23:00)
[2021-06-30] MEDS ORDERED: MORPHINE SULFATE 4 MG/ML SYR/VIAL IV PRN (23:00)
[2021-06-30] MEDS ORDERED: DOCUSATE SOD 100 MG CAP PO PRN (23:00)
[2021-06-30] MEDS ORDERED: MORPHINE SULFATE INJECTION 2 MG/ML SYRG IV PRN (23:00)
[2021-06-30] MEDS ORDERED: DEXTROSE (50%) 50ML SYRG IV PRN (23:15)
[2021-06-30 23:21] LABS: Urine Bacteria NONE SEEN /hpf (None Seen); Urine Blood Negative /uL (Negative); Urine Specific Gravity 1.003 (1.001-1.035); Urine WBC 2 /hpf (0 - 5)
[2021-07-01 00:25] VITALS: BP 147/69
[2021-07-01 05:00] VITALS: BP 108/54
[2021-07-01 06:35] LABS: Basophils # (auto) 0 10 ^3/uL (0-0.2); Basophils % (auto) 0.7 % (0.0-2.0); Eosinophils # (auto) 0.1 10 ^3/uL (0-0.8); Eosinophils % (auto) 2.8 % (0.0-7.0); Hemoglobin 12.2 g/dL (12.2-16.2); Lymphocytes # (auto) 2.4 10 ^3/uL (0.4-5.4); Lymphocytes % (auto) 47.9 % (10.0-50.0); Mean Corpuscular Hemoglobin 30.3 pg (28.0-32.0); Mean Corpuscular Hgb Conc. 33.8 g/dL (32.0-36.0); Mean Corpuscular Volume 89.7 fL (80.0-100.0); Monocytes # (auto) 0.6 10 ^3/uL (0-1.3); Monocytes % (auto) 12.3 % (0.0-12.0); Neutrophils # (auto) 1.8 10 ^3/uL (1.6-8.6); Neutrophils % (auto) 36.3 % (37.0-80.0); Nucleated Red Blood Cells % 0.1 %; Red Blood Cells 4.01 10^6/uL (4.0-5.20); Red Cell Distribution Width 14.1 % (11.8-14.3)
[2021-07-01 06:48] LABS: Albumin 2.7 g/dL (3.4-5.0); Calcium 7.9 mg/dL (8.5-10.1); Potassium 3.2 mmol/L (3.5-5.1)
[2021-07-01 06:51] LABS: BUN/Creatinine Ratio 12.5; Bilirubin, Total 0.5 mg/dL (0.2-1.0); Total Protein 5.4 g/dL (6.4-8.2)
[2021-07-01] MEDS: METOPROLOL TARTRATE 50 MG TAB PO SCH (06:54)
[2021-07-01] MEDS: SUCRALFATE 1 GM/10 ML ORAL SUSP PO SCH ×5 (06:54→21:28)
[2021-07-01] MEDS: InsuLIN REG 1unit/0.01ml Soln (100units/ml) SC SCH ×4 (06:55→21:33)
[2021-07-01] MEDS: ACCU-CHEK COMFORT CURVE STRIP VI SCH ×4 (06:56→21:30)
[2021-07-01] MEDS: HYDROcodone-ACET 5/325MG TAB PO PRN (06:58)
[2021-07-01] MEDS: SODIUM CHLORIDE 0.9% 1,000 ML IV SCH ×2 (07:20→15:40)
[2021-07-01 09:00] VITALS: BP 123/56
[2021-07-01] MEDS ORDERED: PANTOPRAZOLE 40 MG TAB PO SCH (10:00)
[2021-07-01] MEDS: DAPAGLIFLOZIN 5 MG TAB PO SCH (10:18)
[2021-07-01] MEDS: MAGNESIUM OXIDE 400 MG TAB PO SCH (10:18)
[2021-07-01] MEDS: CILOSTAZOL 100 MG TAB PO SCH (10:19)
[2021-07-01] MEDS: BENAZEPRIL HCL 10 MG TAB PO SCH ×2 (10:19→21:29)
[2021-07-01] MEDS: ENOXAPARIN SOD 30 MG/0.3 ML SYRINGE SC SCH (10:20)
[2021-07-01] MEDS: amLODIPine BESYLATE 5 MG TAB PO SCH ×2 (10:38→21:29)
[2021-07-01 10:55] LABS: Sodium Urine 48 mmol/L (40-220)
[2021-07-01 11:03] LABS: Creatinine, Urine 8 mg/dL (30.0-125.0)
[2021-07-01] MEDS: METOCLOPRAMIDE HCL 5MG/ml INJ 2ml VIAL IV SCH ×2 (12:34→21:28)
[2021-07-01] MEDS: MAGNESIUM SULFATE 1GM/100ML 100 ML IV SCH ×3 (12:34→16:45)
[2021-07-01] MEDS: POTASSIUM CHL 20MEQ/100ML 100 ML IV SCH ×2 (12:34→17:52)
[2021-07-01 13:00] VITALS: BP 141/69
[2021-07-01 16:12] LABS: BUN/Creatinine Ratio 13.7; Calcium 8.4 mg/dL (8.5-10.1); Potassium 3.5 mmol/L (3.5-5.1)
[2021-07-01 16:58] VITALS: BP 121/51
[2021-07-01] MEDS ORDERED: ASPirin-EC 81 mg tab PO SCH (18:00)
[2021-07-01] MEDS: ATORVASTATIN 20 MG TAB PO SCH (21:28)
[2021-07-01] MEDS: PANTOPRAZOLE 40 MG/10 ML VIAL INJ IV SCH (21:28)
[2021-07-01 21:30] VITALS: BP 134/63
[2021-07-01] MEDS: BACITRACIN TOP OINT 1 UD PKG TOP SCH (21:30)
[2021-07-02 05:00] VITALS: BP 108/54
[2021-07-02] MEDS: SUCRALFATE 1 GM/10 ML ORAL SUSP PO SCH ×4 (06:17→22:08)
[2021-07-02] MEDS: METOCLOPRAMIDE HCL 5MG/ml INJ 2ml VIAL IV SCH ×3 (06:17→22:07)
[2021-07-02] MEDS: METOPROLOL TARTRATE 50 MG TAB PO SCH (06:18)
[2021-07-02] MEDS: ACCU-CHEK COMFORT CURVE STRIP VI SCH ×4 (06:18→22:10)
[2021-07-02] MEDS: InsuLIN REG 1unit/0.01ml Soln (100units/ml) SC SCH ×4 (06:25→22:00)
[2021-07-02 09:00] VITALS: BP 99/41
[2021-07-02] MEDS: BENAZEPRIL HCL 10 MG TAB PO SCH ×2 (09:41→22:09)
[2021-07-02] MEDS: amLODIPine BESYLATE 5 MG TAB PO SCH ×2 (09:41→22:09)
[2021-07-02] MEDS: CILOSTAZOL 100 MG TAB PO SCH (09:42)
[2021-07-02] MEDS: DAPAGLIFLOZIN 5 MG TAB PO SCH (09:42)
[2021-07-02] MEDS: ENOXAPARIN SOD 30 MG/0.3 ML SYRINGE SC SCH (09:42)
[2021-07-02] MEDS: BACITRACIN TOP OINT 1 UD PKG TOP SCH ×2 (09:42→22:10)
[2021-07-02] MEDS: PANTOPRAZOLE 40 MG/10 ML VIAL INJ IV SCH ×2 (09:42→22:06)
[2021-07-02] MEDS: MAGNESIUM OXIDE 400 MG TAB PO SCH (09:42)
[2021-07-02 11:58] LABS: BUN/Creatinine Ratio 8.6; Calcium 8.7 mg/dL (8.5-10.1); Potassium 3.5 mmol/L (3.5-5.1)
[2021-07-02] MEDS: MUPIROCIN 2% OINT 15gm or 22gm EACHNOSTRI SCH ×2 (12:16→22:06)
[2021-07-02 13:00] VITALS: BP 148/65
[2021-07-02 17:00] VITALS: BP 97/54
[2021-07-02 22:00] VITALS: BP 128/58
[2021-07-02] MEDS: ATORVASTATIN 20 MG TAB PO SCH (22:08)
[2021-07-03 05:00] VITALS: BP 108/54
[2021-07-03] MEDS: SUCRALFATE 1 GM/10 ML ORAL SUSP PO SCH ×4 (06:00→22:13)
[2021-07-03] MEDS: METOCLOPRAMIDE HCL 5MG/ml INJ 2ml VIAL IV SCH (06:00)
[2021-07-03] MEDS: METOPROLOL TARTRATE 50 MG TAB PO SCH (06:01)
[2021-07-03] MEDS: ACCU-CHEK COMFORT CURVE STRIP VI SCH ×4 (06:01→22:28)
[2021-07-03] MEDS: InsuLIN REG 1unit/0.01ml Soln (100units/ml) SC SCH ×4 (06:15→22:00)
[2021-07-03 08:50] VITALS: BP 98/48
[2021-07-03] MEDS: ENOXAPARIN SOD 30 MG/0.3 ML SYRINGE SC SCH (12:33)
[2021-07-03] MEDS: PANTOPRAZOLE 40 MG/10 ML VIAL INJ IV SCH ×2 (12:33→22:13)
[2021-07-03] MEDS: MAGNESIUM OXIDE 400 MG TAB PO SCH (12:34)
[2021-07-03] MEDS: DAPAGLIFLOZIN 5 MG TAB PO SCH (12:34)
[2021-07-03] MEDS: CILOSTAZOL 100 MG TAB PO SCH (12:35)
[2021-07-03] MEDS: BENAZEPRIL HCL 10 MG TAB PO SCH ×2 (12:37→22:00)
[2021-07-03] MEDS: amLODIPine BESYLATE 5 MG TAB PO SCH ×2 (12:38→22:14)
[2021-07-03] MEDS: MUPIROCIN 2% OINT 15gm or 22gm EACHNOSTRI SCH ×2 (12:39→22:22)
[2021-07-03] MEDS: BACITRACIN TOP OINT 1 UD PKG TOP SCH ×2 (12:42→22:16)
[2021-07-03] MEDS ORDERED: METOCLOPRAMIDE HCL 10 MG TAB PO PRN (13:30)
[2021-07-03 16:57] VITALS: BP 93/47
[2021-07-03 22:00] VITALS: BP 111/50
[2021-07-03] MEDS: ATORVASTATIN 20 MG TAB PO SCH (22:31)
[2021-07-04 05:23] VITALS: BP 101/50
[2021-07-04] MEDS: SUCRALFATE 1 GM/10 ML ORAL SUSP PO SCH ×2 (06:06→11:30)
[2021-07-04] MEDS: InsuLIN REG 1unit/0.01ml Soln (100units/ml) SC SCH ×2 (06:06→12:23)
[2021-07-04] MEDS: METOPROLOL TARTRATE 50 MG TAB PO SCH (06:06)
[2021-07-04] MEDS: ACCU-CHEK COMFORT CURVE STRIP VI SCH ×2 (06:07→11:30)
[2021-07-04 09:04] VITALS: BP 104/48
[2021-07-04] MEDS: amLODIPine BESYLATE 5 MG TAB PO SCH (10:00)
[2021-07-04] MEDS: ENOXAPARIN SOD 30 MG/0.3 ML SYRINGE SC SCH (10:08)
[2021-07-04] MEDS: PANTOPRAZOLE 40 MG/10 ML VIAL INJ IV SCH (10:08)
[2021-07-04] MEDS: MUPIROCIN 2% OINT 15gm or 22gm EACHNOSTRI SCH (10:08)
[2021-07-04] MEDS: HYDROcodone-ACET 5/325MG TAB PO PRN (10:08)
[2021-07-04] MEDS: MAGNESIUM OXIDE 400 MG TAB PO SCH (10:08)
[2021-07-04] MEDS: DAPAGLIFLOZIN 5 MG TAB PO SCH (10:09)
[2021-07-04] MEDS: CILOSTAZOL 100 MG TAB PO SCH (10:11)
[2021-07-04] MEDS: BENAZEPRIL HCL 10 MG TAB PO SCH (10:11)
[2021-07-04] MEDS: BACITRACIN TOP OINT 1 UD PKG TOP SCH (10:12)
[2021-07-04 13:00] VITALS: BP 117/55
[2021-07-04 14:05] VITALS: BP 104/48
== END 2021-07-04 15:40 | disposition home or self-care (01) | DRG 241 ==
LOC: ER 18:05 → TELE 22:53 → TELE-CENTR 23:59
PROVIDERS: ADMIT Internal Medicine; ATTEND Internal Medicine
DX: K29.70 Gastritis, unspecified, without bleeding (principal); E87.1 Hypo-osmolality and hyponatremia; I50.9 Heart failure, unspecified; E11.51 Type 2 diabetes mellitus with diabetic peripheral angiopathy without gangrene; I48.91 Unspecified atrial fibrillation; I11.0 Hypertensive heart disease with heart failure; E03.9 Hypothyroidism, unspecified; E86.0 Dehydration; E78.5 Hyperlipidemia, unspecified; E86.1 Hypovolemia; K27.9 Peptic ulcer, site unspecified, unspecified as acute or chronic, without hemorrhage or perforation; E87.6 Hypokalemia; W18.39XA Other fall on same level, initial encounter; Z20.822 Contact with and (suspected) exposure to COVID-19; M85.80 Other specified disorders of bone density and structure, unspecified site; Z83.3 Family history of diabetes mellitus; Z82.49 Family history of ischemic heart disease and other diseases of the circulatory system; Z90.49 Acquired absence of other specified parts of digestive tract; Y93.89 Activity, other specified; Y92.098 Other place in other non-institutional residence as the place of occurrence of the external cause; Y99.8 Other external cause status
CPT/HCPCS: 36415; 70450; 70551; 71045; 73700; 74176; 78264; 80048; 80053; 81001; 82570; 82962; 83605; 83690; 83735; 83880; 83935; 84300; 84484; 85025; 86850; 86900; 86901; 87081; 87426; 93005; 93306; 95819; 96361; 96374; 97110; 97116; 97162; 97163; 97530; C9113; G0378; J1815; J2405; J3480

== ENCOUNTER 2022-08-28 17:41 | Inpatient (IN) | payer MEDICAID ==
[~2022-08-28] VITALS: Ht 147.3 cm; Wt 60.3 kg
[2022-08-28 18:29] LABS: Basophils # (auto) 0.1 10 ^3/uL (0-0.2); Eosinophils # (auto) 0.4 10 ^3/uL (0-0.8); Eosinophils % (auto) 5.4 % (0.0-7.0); Hematocrit 39.8 % (36.0-46.0); Lymphocytes % (auto) 28.5 % (10.0-50.0); Mean Corpuscular Hemoglobin 29.7 pg (28.0-32.0); Mean Corpuscular Hgb Conc. 32.5 g/dL (32.0-36.0); Mean Corpuscular Volume 91.2 fL (80.0-100.0); Monocytes # (auto) 0.5 10 ^3/uL (0-1.3); Monocytes % (auto) 7.6 % (0.0-12.0); Neutrophils # (auto) 4.1 10 ^3/uL (1.6-8.6); Neutrophils % (auto) 57.5 % (37.0-80.0); Nucleated Red Blood Cells % 0.1 %; Red Blood Cells 4.37 10^6/uL (4.0-5.20); Red Cell Distribution Width 14.5 % (11.8-14.3); White Blood Cell 7.2 10^3/uL (4.4-10.8)
[2022-08-28 18:33] LABS: Albumin 3.6 g/dL (3.4-5.0); BUN/Creatinine Ratio 21.3; Calcium 9.2 mg/dL (8.5-10.1); Magnesium 1.4 mg/dL (1.6-2.6); Potassium 3.8 mmol/L (3.5-5.1)
[2022-08-28 18:36] LABS: Bilirubin, Total 0.3 mg/dL (0.2-1.0)
[2022-08-28] MEDS ORDERED: SODIUM CHLORIDE 0.9% 1,000 ML IV ONE (19:45)
[2022-08-28] MEDS ORDERED: MAGNESIUM SULFATE 1GM/100ML 100 ML IV ONE (19:45)
[2022-08-28] MEDS ORDERED: hydrALAZINE HCL 20 MG/ML VL IV ONE (20:15)
[2022-08-28] MEDS ORDERED: ACETAMINOPHEN 325 MG TAB PO ONE (21:00)
[2022-08-28] MEDS ORDERED: LABETALOL HCL 5 MG/ML 4ML SYRINGE IV ONE (21:30)
[2022-08-28] MEDS ORDERED: DEXTROSE (50%) 50ML SYRG IV PRN (22:00)
[2022-08-28] MEDS ORDERED: NITROGLYCERIN 0.4 MG SL TAB SL PRN (22:00)
[2022-08-28] MEDS ORDERED: MORPHINE SULFATE INJ 2 MG/ml SYRG IV PRN (22:00)
[2022-08-28] MEDS ORDERED: IOHEXOL 350 MG/ML 100ML IJ ONE (22:08)
[2022-08-28] MEDS ORDERED: PANTOPRAZOLE 40 MG/10 ML VIAL INJ IV ONE (22:15)
[2022-08-28 22:28] LABS: Cholesterol 264 mg/dL (< 200)
[2022-08-28 22:30] LABS: HDL Cholesterol 43 mg/dL (40-59); LDL Cholesterol 171 mg/dL (< 100); Triglycerides 381 mg/dL (< 150)
[2022-08-28] MEDS: ACCU-CHEK COMFORT CURVE STRIP VI SCH (22:32)
[2022-08-28] MEDS: SODIUM CHLORIDE 0.9% 1,000 ML IV SCH (22:33)
[2022-08-28] MEDS: InsuLIN REG 1unit/0.01ml Soln (100units/ml) SC SCH (22:35)
[2022-08-29 01:02] LABS: Urine Bacteria NONE SEEN /hpf (None Seen); Urine Blood Negative /uL (Negative); Urine Specific Gravity 1.029 (1.001-1.035); Urine WBC <1 /hpf (0 - 5)
[2022-08-29 06:29] LABS: Basophils # (auto) 0 10 ^3/uL (0-0.2); Basophils % (auto) 0.5 % (0.0-2.0); Eosinophils # (auto) 0.2 10 ^3/uL (0-0.8); Eosinophils % (auto) 2.8 % (0.0-7.0); Hematocrit 36.9 % (36.0-46.0); Hemoglobin 12.1 g/dL (12.2-16.2); Lymphocytes # (auto) 2.8 10 ^3/uL (0.4-5.4); Mean Corpuscular Hemoglobin 30.5 pg (28.0-32.0); Mean Corpuscular Hgb Conc. 32.8 g/dL (32.0-36.0); Mean Corpuscular Volume 92.9 fL (80.0-100.0); Monocytes # (auto) 0.6 10 ^3/uL (0-1.3); Monocytes % (auto) 7.9 % (0.0-12.0); Neutrophils # (auto) 4.3 10 ^3/uL (1.6-8.6); Neutrophils % (auto) 53.8 % (37.0-80.0); Nucleated Red Blood Cells % 0.1 %; Red Blood Cells 3.97 10^6/uL (4.0-5.20); Red Cell Distribution Width 14.4 % (11.8-14.3)
[2022-08-29] MEDS: ACCU-CHEK COMFORT CURVE STRIP VI SCH ×4 (06:30→22:00)
[2022-08-29] MEDS: InsuLIN REG 1unit/0.01ml Soln (100units/ml) SC SCH ×4 (06:30→22:00)
[2022-08-29 06:38] LABS: Potassium 3.8 mmol/L (3.5-5.1)
[2022-08-29] MEDS: METOPROLOL TARTRATE 50 MG TAB PO SCH (06:42)
[2022-08-29 06:57] LABS: Albumin 2.9 g/dL (3.4-5.0); BUN/Creatinine Ratio 21.3; Bilirubin, Total 0.4 mg/dL (0.2-1.0); Calcium 8.1 mg/dL (8.5-10.1); Total Protein 5.8 g/dL (6.4-8.2)
[2022-08-29] MEDS ORDERED: PANTOPRAZOLE 40 MG/10 ML VIAL INJ IV SCH (10:00)
[2022-08-29] MEDS: ENOXAPARIN SOD 30 MG/0.3 ML SYRINGE SC SCH (10:31)
[2022-08-29] MEDS: MAGNESIUM OXIDE 400 MG TAB PO SCH (10:31)
[2022-08-29] MEDS: BENAZEPRIL HCL 10 MG TAB PO SCH ×2 (10:32→22:00)
[2022-08-29] MEDS: amLODIPine BESYLATE 5 MG TAB PO SCH ×2 (10:32→22:00)
[2022-08-29] MEDS: ATORVASTATIN 20 MG TAB PO SCH ×2 (10:50→22:50)
[2022-08-29] MEDS: CILOSTAZOL 100 MG TAB PO SCH (11:12)
[2022-08-29] MEDS ORDERED: ADENOSINE 48 MG in GIVE UN-DILUTED 0 ML IV STA (13:14)
[2022-08-29] MEDS: ASPirin-EC 81 mg tab PO SCH (18:19)
[2022-08-29] MEDS: SODIUM CHLORIDE 0.9% 1,000 ML IV SCH (18:19)
[2022-08-29] MEDS: ACETAMINOPHEN 325 MG TAB PO PRN (18:21)
[2022-08-29] MEDS ORDERED: ATORVASTATIN 20 MG TAB PO SCH (22:00)
[2022-08-29] MEDS: GABAPENTIN 100 MG CAP PO SCH (22:50)
[2022-08-30 05:00] VITALS: BP 119/41
[2022-08-30] MEDS: METOPROLOL TARTRATE 50 MG TAB PO SCH (06:10)
[2022-08-30] MEDS: InsuLIN REG 1unit/0.01ml Soln (100units/ml) SC SCH ×4 (06:10→22:30)
[2022-08-30] MEDS: ACCU-CHEK COMFORT CURVE STRIP VI SCH ×3 (06:40→22:29)
[2022-08-30 08:00] VITALS: BP 165/69
[2022-08-30 09:00] VITALS: BP 165/69
[2022-08-30] MEDS: CILOSTAZOL 100 MG TAB PO SCH (09:02)
[2022-08-30] MEDS: BENAZEPRIL HCL 10 MG TAB PO SCH ×2 (09:03→21:48)
[2022-08-30] MEDS: GABAPENTIN 100 MG CAP PO SCH ×2 (09:04→21:48)
[2022-08-30] MEDS: amLODIPine BESYLATE 5 MG TAB PO SCH ×2 (09:04→21:49)
[2022-08-30] MEDS: MAGNESIUM OXIDE 400 MG TAB PO SCH (09:04)
[2022-08-30] MEDS: hydrALAZINE HCL 20 MG/ML VL IV PRN (09:05)
[2022-08-30] MEDS: ENOXAPARIN SOD 30 MG/0.3 ML SYRINGE SC SCH (09:05)
[2022-08-30] MEDS ORDERED: GADOTERATE MEG 10 MMOL/20ml INJ (0.5MMOL/ml) IV ONE (11:33)
[2022-08-30 13:07] VITALS: BP 124/46
[2022-08-30] MEDS: SODIUM CHLORIDE 0.9% 1,000 ML IV SCH (14:00)
[2022-08-30 17:11] VITALS: BP 134/52
[2022-08-30] MEDS: ASPirin-EC 81 mg tab PO SCH (18:18)
[2022-08-30] MEDS: ACETAMINOPHEN 325 MG TAB PO PRN (18:19)
[2022-08-30] MEDS: ATORVASTATIN 20 MG TAB PO SCH (21:48)
[2022-08-30 22:00] VITALS: BP 130/59
[2022-08-31] VITALS (25 sets, daily range): BP systolic 95–153; BP diastolic 45–72
[2022-08-31] MEDS: METOPROLOL TARTRATE 50 MG TAB PO SCH (01:03)
[2022-08-31] MEDS: InsuLIN REG 1unit/0.01ml Soln (100units/ml) SC SCH ×4 (06:05→22:18)
[2022-08-31] MEDS: ACCU-CHEK COMFORT CURVE STRIP VI SCH ×4 (06:05→22:10)
[2022-08-31 06:35] LABS: Basophils # (auto) 0.1 10 ^3/uL (0-0.2); Basophils % (auto) 1.1 % (0.0-2.0); Eosinophils # (auto) 0.3 10 ^3/uL (0-0.8); Eosinophils % (auto) 5.4 % (0.0-7.0); Hematocrit 32.5 % (36.0-46.0); Hemoglobin 10.6 g/dL (12.2-16.2); Lymphocytes # (auto) 2.1 10 ^3/uL (0.4-5.4); Lymphocytes % (auto) 34.2 % (10.0-50.0); Mean Corpuscular Hgb Conc. 32.6 g/dL (32.0-36.0); Mean Corpuscular Volume 91.9 fL (80.0-100.0); Monocytes # (auto) 0.7 10 ^3/uL (0-1.3); Neutrophils % (auto) 48.3 % (37.0-80.0); Nucleated Red Blood Cells % 0.1 %; Red Blood Cells 3.54 10^6/uL (4.0-5.20); Red Cell Distribution Width 14.4 % (11.8-14.3); White Blood Cell 6.2 10^3/uL (4.4-10.8)
[2022-08-31 06:44] LABS: BUN/Creatinine Ratio 18.8; Calcium 8.5 mg/dL (8.5-10.1); Potassium 3.2 mmol/L (3.5-5.1)
[2022-08-31 08:23] LABS: INR 0.97 (0.9-1.15); Partial Thromboplastin Time 28.2 sec (24.6-33.4)
[2022-08-31] MEDS: CILOSTAZOL 100 MG TAB PO SCH (09:46)
[2022-08-31] MEDS: BENAZEPRIL HCL 10 MG TAB PO SCH ×2 (09:47→22:09)
[2022-08-31] MEDS: SODIUM CHLORIDE 0.9% 1,000 ML IV SCH (09:47)
[2022-08-31] MEDS: amLODIPine BESYLATE 5 MG TAB PO SCH ×2 (09:47→22:09)
[2022-08-31] MEDS: ENOXAPARIN SOD 30 MG/0.3 ML SYRINGE SC SCH (10:00)
[2022-08-31] MEDS: GABAPENTIN 100 MG CAP PO SCH ×2 (10:00→22:09)
[2022-08-31] MEDS ORDERED: HEPARIN SODIUM (PORCINE) 5000 UNITS/ML 1ML VIAL ONE (10:55)
[2022-08-31] MEDS ORDERED: MIDAZOLAM HCL 2MG/2ML 2ml VIAL (1mg/ml) ONE (10:55)
[2022-08-31] MEDS ORDERED: VERAPAMIL 2.5MG/ML INJ 2ML VIAL IV ONE (10:55)
[2022-08-31] MEDS ORDERED: ANGIOMAX 250 MG VIAL IV ONE (10:55)
[2022-08-31] MEDS ORDERED: fentaNYL CITRATE 100 MCG/2 ML VL ONE (10:55)
[2022-08-31] MEDS ORDERED: IODIXANOL 320MG/ML 100ML BTL IV ONE (10:56)
[2022-08-31] MEDS ORDERED: LIDOCAINE 2%HCL (LOCAL ANESTH.) INJ 20ML MDV ONE (10:56)
[2022-08-31] MEDS ORDERED: SODIUM CHL 0.9% 0 ML ONE (10:56)
[2022-08-31] MEDS ORDERED: KETO2CRE4 TOP (12:03)
[2022-08-31] MEDS ORDERED: NEOM1OIN18 EX (12:03)
[2022-08-31] MEDS ORDERED: [UNRECOGNIZED DRUG - CODE] EX (12:03)
[2022-08-31] MEDS ORDERED: hydrALAZINE HCL 20 MG/ML VL ONE (12:24)
[2022-08-31] MEDS: MAGNESIUM OXIDE 400 MG TAB PO SCH (15:20)
[2022-08-31] MEDS: ASPirin-EC 81 mg tab PO SCH (17:43)
[2022-08-31] MEDS: KETOCONAZOLE 2 % TOPICAL CREAM 15GM TOP SCH (22:00)
[2022-08-31] MEDS: ATORVASTATIN 20 MG TAB PO SCH (22:09)
[2022-08-31] MEDS: DAKINS QUARTER STR 0.125% (NaHypochlorite) 473 ML TOPICAL SOL TOP SCH (22:10)
[2022-09-01 05:00] VITALS: BP 140/61
[2022-09-01] MEDS: SODIUM CHLORIDE 0.9% 1,000 ML IV SCH ×2 (06:00→14:41)
[2022-09-01] MEDS: ACCU-CHEK COMFORT CURVE STRIP VI SCH ×4 (06:28→22:42)
[2022-09-01] MEDS: InsuLIN REG 1unit/0.01ml Soln (100units/ml) SC SCH ×4 (06:39→23:07)
[2022-09-01] MEDS: METOPROLOL TARTRATE 50 MG TAB PO SCH (06:39)
[2022-09-01 07:30] VITALS: BP 121/60
[2022-09-01 09:19] VITALS: BP 89/29
[2022-09-01] MEDS: KETOCONAZOLE 2 % TOPICAL CREAM 15GM TOP SCH ×2 (10:00→22:42)
[2022-09-01] MEDS: BENAZEPRIL HCL 10 MG TAB PO SCH ×2 (10:00→22:00)
[2022-09-01] MEDS: NEOMYCIN-BACITRACIN-POLYM UNITDOSE PKG TOP OINT TOP SCH (10:00)
[2022-09-01] MEDS: CILOSTAZOL 100 MG TAB PO SCH (11:06)
[2022-09-01] MEDS: ENOXAPARIN SOD 30 MG/0.3 ML SYRINGE SC SCH (11:06)
[2022-09-01] MEDS: GABAPENTIN 100 MG CAP PO SCH ×2 (11:06→22:41)
[2022-09-01] MEDS: MAGNESIUM OXIDE 400 MG TAB PO SCH (11:06)
[2022-09-01] MEDS: DAKINS QUARTER STR 0.125% (NaHypochlorite) 473 ML TOPICAL SOL TOP SCH ×2 (11:07→22:42)
[2022-09-01 12:58] VITALS: BP 129/65
[2022-09-01 17:10] VITALS: BP 113/55
[2022-09-01] MEDS: ASPirin-EC 81 mg tab PO SCH (18:27)
[2022-09-01] MEDS: ACETAMINOPHEN 325 MG TAB PO PRN (19:45)
[2022-09-01] MEDS: MORPHINE SULFATE 4 MG/ML SYR/VIAL IV PRN (21:54)
[2022-09-01 22:00] VITALS: BP 135/70
[2022-09-01] MEDS: ATORVASTATIN 20 MG TAB PO SCH (22:41)
[2022-09-02] MEDS: SODIUM CHLORIDE 0.9% 1,000 ML IV SCH ×3 (00:15→20:00)
[2022-09-02 05:00] VITALS: BP 114/51
[2022-09-02] MEDS: ACCU-CHEK COMFORT CURVE STRIP VI SCH ×4 (06:18→22:38)
[2022-09-02] MEDS: InsuLIN REG 1unit/0.01ml Soln (100units/ml) SC SCH ×4 (06:18→22:44)
[2022-09-02 09:00] VITALS: BP 132/64
[2022-09-02] MEDS: GABAPENTIN 100 MG CAP PO SCH ×2 (10:20→22:38)
[2022-09-02] MEDS: CILOSTAZOL 100 MG TAB PO SCH (10:20)
[2022-09-02] MEDS: MAGNESIUM OXIDE 400 MG TAB PO SCH (10:20)
[2022-09-02] MEDS: BENAZEPRIL HCL 10 MG TAB PO SCH ×2 (10:20→22:37)
[2022-09-02] MEDS: ENOXAPARIN SOD 30 MG/0.3 ML SYRINGE SC SCH (10:21)
[2022-09-02] MEDS: DAKINS QUARTER STR 0.125% (NaHypochlorite) 473 ML TOPICAL SOL TOP SCH ×2 (10:22→22:38)
[2022-09-02] MEDS: KETOCONAZOLE 2 % TOPICAL CREAM 15GM TOP SCH ×2 (10:22→22:38)
[2022-09-02] MEDS: NEOMYCIN-BACITRACIN-POLYM UNITDOSE PKG TOP OINT TOP SCH (10:23)
[2022-09-02 13:00] VITALS: BP 166/68
[2022-09-02 13:55] VITALS: BP 134/48
[2022-09-02 17:00] VITALS: BP 156/63
[2022-09-02] MEDS: ASPirin-EC 81 mg tab PO SCH (18:07)
[2022-09-02] MEDS: ACETAMINOPHEN 325 MG TAB PO PRN (20:21)
[2022-09-02 22:00] VITALS: BP 163/66
[2022-09-02] MEDS: ATORVASTATIN 20 MG TAB PO SCH (22:37)
[2022-09-03] VITALS (12 sets, daily range): BP systolic 76–171; BP diastolic 35–73
[2022-09-03] MEDS: ACETAMINOPHEN 325 MG TAB PO PRN (03:47)
[2022-09-03] MEDS: ACCU-CHEK COMFORT CURVE STRIP VI SCH ×4 (06:37→22:20)
[2022-09-03] MEDS: InsuLIN REG 1unit/0.01ml Soln (100units/ml) SC SCH ×4 (06:38→22:22)
[2022-09-03 07:08] LABS: Basophils # (auto) 0 10 ^3/uL (0-0.2); Basophils % (auto) 0.9 % (0.0-2.0); Eosinophils # (auto) 0.5 10 ^3/uL (0-0.8); Eosinophils % (auto) 8.5 % (0.0-7.0); Hematocrit 29.1 % (36.0-46.0); Hemoglobin 9.8 g/dL (12.2-16.2); Lymphocytes # (auto) 1.8 10 ^3/uL (0.4-5.4); Lymphocytes % (auto) 32.7 % (10.0-50.0); Mean Corpuscular Hemoglobin 30.8 pg (28.0-32.0); Mean Corpuscular Hgb Conc. 33.5 g/dL (32.0-36.0); Mean Corpuscular Volume 92.2 fL (80.0-100.0); Monocytes # (auto) 0.7 10 ^3/uL (0-1.3); Monocytes % (auto) 12.7 % (0.0-12.0); Neutrophils # (auto) 2.5 10 ^3/uL (1.6-8.6); Neutrophils % (auto) 45.2 % (37.0-80.0); Nucleated Red Blood Cells % 0.1 %; Red Blood Cells 3.16 10^6/uL (4.0-5.20); Red Cell Distribution Width 14.8 % (11.8-14.3); White Blood Cell 5.4 10^3/uL (4.4-10.8)
[2022-09-03 07:10] LABS: Potassium 3.5 mmol/L (3.5-5.1)
[2022-09-03 07:18] LABS: Albumin 2.5 g/dL (3.4-5.0); BUN/Creatinine Ratio 13.5; Bilirubin, Total 0.4 mg/dL (0.2-1.0); Calcium 7.7 mg/dL (8.5-10.1); INR 0.98 (0.9-1.15); Partial Thromboplastin Time 28.3 sec (24.6-33.4); Total Protein 5.2 g/dL (6.4-8.2)
[2022-09-03] MEDS: CILOSTAZOL 100 MG TAB PO SCH (09:30)
[2022-09-03] MEDS: BENAZEPRIL HCL 10 MG TAB PO SCH ×2 (09:30→22:13)
[2022-09-03] MEDS: MAGNESIUM OXIDE 400 MG TAB PO SCH (09:30)
[2022-09-03] MEDS: ENOXAPARIN SOD 30 MG/0.3 ML SYRINGE SC SCH (09:30)
[2022-09-03] MEDS: GABAPENTIN 100 MG CAP PO SCH ×2 (09:30→22:12)
[2022-09-03] MEDS: KETOCONAZOLE 2 % TOPICAL CREAM 15GM TOP SCH ×2 (09:31→22:22)
[2022-09-03] MEDS: DAKINS QUARTER STR 0.125% (NaHypochlorite) 473 ML TOPICAL SOL TOP SCH ×2 (09:31→22:22)
[2022-09-03] MEDS: NEOMYCIN-BACITRACIN-POLYM UNITDOSE PKG TOP OINT TOP SCH (09:31)
[2022-09-03] MEDS ORDERED: LIDOCAINE 2%HCL (LOCAL ANESTH.) INJ 20ML MDV ONE (09:50)
[2022-09-03] MEDS ORDERED: IODIXANOL 320MG/ML 100ML BTL IV ONE ×2 (09:50→11:33)
[2022-09-03] MEDS ORDERED: HEPARIN IN NS 1000Units/500mL 1,500 ML ONE (09:51)
[2022-09-03] MEDS ORDERED: SODIUM CHL 0.9% 50 ML ONE (10:16)
[2022-09-03] MEDS ORDERED: fentaNYL CITRATE 100 MCG/2 ML VL ONE (10:16)
[2022-09-03] MEDS ORDERED: ANGIOMAX 250 MG VIAL IV ONE (10:16)
[2022-09-03] MEDS ORDERED: MIDAZOLAM HCL 2MG/2ML 2ml VIAL (1mg/ml) ONE (10:16)
[2022-09-03] MEDS ORDERED: ATROPINE SULF 1 MG/10ml SYR ONE (10:30)
[2022-09-03] MEDS ORDERED: EPINEPHrine HCL 1 MG/10 ML SYRG ONE ×2 (10:31→10:34)
[2022-09-03] MEDS ORDERED: CLOPIDOGREL 300 MG TAB ONE (11:55)
[2022-09-03] MEDS ORDERED: ASPirin 325 MG TAB ONE (11:56)
[2022-09-03] MEDS ORDERED: hydrALAZINE HCL 20 MG/ML VL ONE (12:13)
[2022-09-03] MEDS: SODIUM CHLORIDE 0.9% 1,000 ML IV SCH (16:14)
[2022-09-03] MEDS: ASPirin-EC 81 mg tab PO SCH (18:00)
[2022-09-03] MEDS: ATORVASTATIN 20 MG TAB PO SCH (22:12)
[2022-09-04 05:00] VITALS: BP 126/50
[2022-09-04] MEDS: InsuLIN REG 1unit/0.01ml Soln (100units/ml) SC SCH ×3 (06:24→18:48)
[2022-09-04] MEDS: ACCU-CHEK COMFORT CURVE STRIP VI SCH ×4 (06:24→22:52)
[2022-09-04 09:00] VITALS: BP 164/69
[2022-09-04] MEDS: BENAZEPRIL HCL 10 MG TAB PO SCH ×2 (11:01→23:12)
[2022-09-04] MEDS: GABAPENTIN 100 MG CAP PO SCH ×2 (11:02→23:13)
[2022-09-04] MEDS: CLOPIDOGREL BISULFATE 75 MG TAB PO SCH (11:02)
[2022-09-04] MEDS: ENOXAPARIN SOD 30 MG/0.3 ML SYRINGE SC SCH (11:02)
[2022-09-04] MEDS: MAGNESIUM OXIDE 400 MG TAB PO SCH (11:02)
[2022-09-04] MEDS: CILOSTAZOL 100 MG TAB PO SCH (11:02)
[2022-09-04] MEDS: SODIUM CHLORIDE 0.9% 1,000 ML IV SCH (12:00)
[2022-09-04 13:00] VITALS: BP 151/66
[2022-09-04 13:22] LABS: Basophils # (auto) 0.1 10 ^3/uL (0-0.2); Basophils % (auto) 1.1 % (0.0-2.0); Eosinophils # (auto) 0.6 10 ^3/uL (0-0.8); Eosinophils % (auto) 6.7 % (0.0-7.0); Hematocrit 35.7 % (36.0-46.0); Hemoglobin 11.4 g/dL (12.2-16.2); Lymphocytes # (auto) 2.1 10 ^3/uL (0.4-5.4); Lymphocytes % (auto) 25.1 % (10.0-50.0); Mean Corpuscular Hemoglobin 29.7 pg (28.0-32.0); Mean Corpuscular Hgb Conc. 31.9 g/dL (32.0-36.0); Mean Corpuscular Volume 93.2 fL (80.0-100.0); Monocytes # (auto) 0.8 10 ^3/uL (0-1.3); Monocytes % (auto) 9.3 % (0.0-12.0); Neutrophils # (auto) 4.8 10 ^3/uL (1.6-8.6); Neutrophils % (auto) 57.8 % (37.0-80.0); Nucleated Red Blood Cells % 0.1 %; Red Blood Cells 3.83 10^6/uL (4.0-5.20); Red Cell Distribution Width 14.7 % (11.8-14.3); White Blood Cell 8.3 10^3/uL (4.4-10.8)
[2022-09-04 13:41] LABS: BUN/Creatinine Ratio 16.9; Calcium 8.7 mg/dL (8.5-10.1); Magnesium 1.8 mg/dL (1.6-2.6); Potassium 3.7 mmol/L (3.5-5.1)
[2022-09-04] MEDS: NEOMYCIN-BACITRACIN-POLYM UNITDOSE PKG TOP OINT TOP SCH (14:40)
[2022-09-04] MEDS: KETOCONAZOLE 2 % TOPICAL CREAM 15GM TOP SCH ×2 (14:40→23:13)
[2022-09-04] MEDS: DAKINS QUARTER STR 0.125% (NaHypochlorite) 473 ML TOPICAL SOL TOP SCH ×2 (14:40→23:13)
[2022-09-04] MEDS: ACETAMINOPHEN 325 MG TAB PO PRN (14:42)
[2022-09-04 17:00] VITALS: BP 160/70
[2022-09-04] MEDS: ASPirin-EC 81 mg tab PO SCH (18:49)
[2022-09-04] MEDS: MORPHINE SULFATE 4 MG/ML SYR/VIAL IV PRN (18:51)
[2022-09-04 22:00] VITALS: BP 131/50
[2022-09-04] MEDS: ATORVASTATIN 20 MG TAB PO SCH (23:12)
[2022-09-05] VITALS (13 sets, daily range): BP systolic 105–181; BP diastolic 56–80
[2022-09-05] MEDS: InsuLIN REG 1unit/0.01ml Soln (100units/ml) SC SCH ×5 (00:22→22:08)
[2022-09-05] MEDS: ACCU-CHEK COMFORT CURVE STRIP VI SCH ×4 (06:34→22:07)
[2022-09-05 07:23] LABS: Basophils # (auto) 0 10 ^3/uL (0-0.2); Basophils % (auto) 0.6 % (0.0-2.0); Eosinophils # (auto) 0.6 10 ^3/uL (0-0.8); Eosinophils % (auto) 8.1 % (0.0-7.0); Hematocrit 30.6 % (36.0-46.0); Hemoglobin 10.1 g/dL (12.2-16.2); Lymphocytes # (auto) 1.4 10 ^3/uL (0.4-5.4); Lymphocytes % (auto) 18.9 % (10.0-50.0); Mean Corpuscular Hemoglobin 30.4 pg (28.0-32.0); Mean Corpuscular Hgb Conc. 33.1 g/dL (32.0-36.0); Mean Corpuscular Volume 91.9 fL (80.0-100.0); Monocytes # (auto) 0.8 10 ^3/uL (0-1.3); Monocytes % (auto) 10.7 % (0.0-12.0); Neutrophils # (auto) 4.5 10 ^3/uL (1.6-8.6); Neutrophils % (auto) 61.7 % (37.0-80.0); Nucleated Red Blood Cells % 0.2 %; Red Blood Cells 3.34 10^6/uL (4.0-5.20); Red Cell Distribution Width 14.5 % (11.8-14.3); White Blood Cell 7.3 10^3/uL (4.4-10.8)
[2022-09-05 07:33] LABS: INR 0.99 (0.9-1.15); Partial Thromboplastin Time 28.8 sec (24.6-33.4)
[2022-09-05 07:41] LABS: Potassium 3.8 mmol/L (3.5-5.1)
[2022-09-05 07:42] LABS: BUN/Creatinine Ratio 15.6; Calcium 8.1 mg/dL (8.5-10.1)
[2022-09-05] MEDS: MORPHINE SULFATE 4 MG/ML SYR/VIAL IV PRN ×2 (09:18→18:20)
[2022-09-05] MEDS: SODIUM CHLORIDE 0.9% 1,000 ML IV SCH (09:30)
[2022-09-05] MEDS: BENAZEPRIL HCL 10 MG TAB PO SCH ×2 (09:48→21:51)
[2022-09-05] MEDS: CLOPIDOGREL BISULFATE 75 MG TAB PO SCH (09:49)
[2022-09-05] MEDS: GABAPENTIN 100 MG CAP PO SCH ×2 (09:49→21:52)
[2022-09-05] MEDS: CILOSTAZOL 100 MG TAB PO SCH (09:49)
[2022-09-05] MEDS: MAGNESIUM OXIDE 400 MG TAB PO SCH (09:50)
[2022-09-05] MEDS: ENOXAPARIN SOD 30 MG/0.3 ML SYRINGE SC SCH (09:55)
[2022-09-05] MEDS: KETOCONAZOLE 2 % TOPICAL CREAM 15GM TOP SCH (12:00)
[2022-09-05] MEDS: NEOMYCIN-BACITRACIN-POLYM UNITDOSE PKG TOP OINT TOP SCH (12:00)
[2022-09-05] MEDS: DAKINS QUARTER STR 0.125% (NaHypochlorite) 473 ML TOPICAL SOL TOP SCH (12:00)
[2022-09-05] MEDS ORDERED: LIDOCAINE 2%HCL (LOCAL ANESTH.) INJ 20ML MDV ONE (12:57)
[2022-09-05] MEDS ORDERED: IODIXANOL 320MG/ML 100ML BTL IV ONE (12:57)
[2022-09-05] MEDS ORDERED: MIDAZOLAM HCL 2MG/2ML 2ml VIAL (1mg/ml) ONE ×2 (13:00→13:52)
[2022-09-05] MEDS ORDERED: fentaNYL CITRATE 100 MCG/2 ML VL ONE ×2 (13:00→14:20)
[2022-09-05] MEDS ORDERED: ANGIOMAX 250 MG VIAL IV ONE ×2 (13:00→14:44)
[2022-09-05] MEDS ORDERED: SODIUM CHL 0.9% 50 ML ONE ×2 (13:00→14:44)
[2022-09-05] MEDS ORDERED: hydrALAZINE HCL 20 MG/ML VL ONE ×2 (13:48→15:33)
[2022-09-05] MEDS ORDERED: IOHEXOL 350 MG/ML 100ML IJ ONE (14:45)
[2022-09-05] MEDS: ASPirin-EC 81 mg tab PO SCH (21:50)
[2022-09-05] MEDS: ATORVASTATIN 20 MG TAB PO SCH (21:51)
[2022-09-05] MEDS: ACETAMINOPHEN 325 MG TAB PO PRN (21:53)
[2022-09-06] MEDS: SODIUM CHLORIDE 0.9% 1,000 ML IV SCH (04:00)
[2022-09-06 05:00] VITALS: BP_SYST 123; BP_SYST 158; BP_DIAS 40; BP_DIAS 59
[2022-09-06] MEDS: KETOCONAZOLE 2 % TOPICAL CREAM 15GM TOP SCH ×2 (06:04→10:00)
[2022-09-06] MEDS: DAKINS QUARTER STR 0.125% (NaHypochlorite) 473 ML TOPICAL SOL TOP SCH ×2 (06:04→10:00)
[2022-09-06] MEDS: ACCU-CHEK COMFORT CURVE STRIP VI SCH ×4 (06:04→23:53)
[2022-09-06] MEDS: InsuLIN REG 1unit/0.01ml Soln (100units/ml) SC SCH ×4 (06:05→23:54)
[2022-09-06] MEDS: MORPHINE SULFATE 4 MG/ML SYR/VIAL IV PRN (06:05)
[2022-09-06 08:00] VITALS: BP 130/40
[2022-09-06] MEDS: NEOMYCIN-BACITRACIN-POLYM UNITDOSE PKG TOP OINT TOP SCH (10:00)
[2022-09-06] MEDS: CLOPIDOGREL BISULFATE 75 MG TAB PO SCH (10:27)
[2022-09-06] MEDS: ENOXAPARIN SOD 30 MG/0.3 ML SYRINGE SC SCH (10:27)
[2022-09-06] MEDS: CILOSTAZOL 100 MG TAB PO SCH (10:27)
[2022-09-06] MEDS: GABAPENTIN 100 MG CAP PO SCH ×3 (10:27→23:53)
[2022-09-06] MEDS: BENAZEPRIL HCL 10 MG TAB PO SCH ×2 (10:28→23:53)
[2022-09-06] MEDS: MAGNESIUM OXIDE 400 MG TAB PO SCH (10:29)
[2022-09-06 12:00] VITALS: BP 146/53
[2022-09-06 16:05] VITALS: BP 160/68
[2022-09-06] MEDS: ASPirin-EC 81 mg tab PO SCH (17:42)
[2022-09-06] MEDS: traMADol HCL 50 MG TAB PO PRN (19:36)
[2022-09-06 22:00] VITALS: BP 156/63
[2022-09-06] MEDS: ATORVASTATIN 20 MG TAB PO SCH (23:52)
[2022-09-07] VITALS (10 sets, daily range): BP systolic 114–164; BP diastolic 41–79
[2022-09-07] MEDS: traMADol HCL 50 MG TAB PO PRN ×2 (03:50→12:19)
[2022-09-07] MEDS: KETOCONAZOLE 2 % TOPICAL CREAM 15GM TOP SCH ×2 (06:07→10:04)
[2022-09-07] MEDS: DAKINS QUARTER STR 0.125% (NaHypochlorite) 473 ML TOPICAL SOL TOP SCH ×2 (06:07→10:04)
[2022-09-07] MEDS: ACCU-CHEK COMFORT CURVE STRIP VI SCH ×3 (06:08→17:00)
[2022-09-07] MEDS: InsuLIN REG 1unit/0.01ml Soln (100units/ml) SC SCH ×3 (06:08→17:00)
[2022-09-07] MEDS: GABAPENTIN 100 MG CAP PO SCH ×3 (06:09→22:13)
[2022-09-07 07:02] LABS: Basophils # (auto) 0.1 10 ^3/uL (0-0.2); Eosinophils # (auto) 0.3 10 ^3/uL (0-0.8); Eosinophils % (auto) 3.4 % (0.0-7.0); Hemoglobin 8.1 g/dL (12.2-16.2); Lymphocytes # (auto) 1.2 10 ^3/uL (0.4-5.4); Mean Corpuscular Volume 92.3 fL (80.0-100.0); Monocytes # (auto) 0.9 10 ^3/uL (0-1.3)
[2022-09-07 07:03] LABS: Basophils % (auto) 1.1 % (0.0-2.0); Hematocrit 24.6 % (36.0-46.0); Lymphocytes % (auto) 15.6 % (10.0-50.0); Mean Corpuscular Hemoglobin 30.6 pg (28.0-32.0); Mean Corpuscular Hgb Conc. 33.1 g/dL (32.0-36.0); Monocytes % (auto) 10.9 % (0.0-12.0); Neutrophils # (auto) 5.4 10 ^3/uL (1.6-8.6); Red Blood Cells 2.66 10^6/uL (4.0-5.20); White Blood Cell 7.8 10^3/uL (4.4-10.8)
[2022-09-07 07:10] LABS: INR 0.97 (0.9-1.15); Partial Thromboplastin Time 28.6 sec (24.6-33.4)
[2022-09-07 07:19] LABS: BUN/Creatinine Ratio 20.6; Calcium 8.2 mg/dL (8.5-10.1); Potassium 4.1 mmol/L (3.5-5.1)
[2022-09-07] MEDS: CLOPIDOGREL BISULFATE 75 MG TAB PO SCH (09:56)
[2022-09-07] MEDS: HYDROmorphone HCL 2 MG/ML VL/or syr IV PRN (09:56)
[2022-09-07] MEDS: BENAZEPRIL HCL 10 MG TAB PO SCH ×2 (09:57→22:12)
[2022-09-07] MEDS: CILOSTAZOL 100 MG TAB PO SCH (09:58)
[2022-09-07] MEDS: MAGNESIUM OXIDE 400 MG TAB PO SCH (09:58)
[2022-09-07] MEDS: ENOXAPARIN SOD 30 MG/0.3 ML SYRINGE SC SCH (10:00)
[2022-09-07] MEDS: NEOMYCIN-BACITRACIN-POLYM UNITDOSE PKG TOP OINT TOP SCH (10:04)
[2022-09-07] MEDS ORDERED: MIDAZOLAM HCL 2MG/2ML 2ml VIAL (1mg/ml) ONE (15:08)
[2022-09-07] MEDS ORDERED: fentaNYL CITRATE 100 MCG/2 ML VL ONE ×2 (15:08→15:51)
[2022-09-07] MEDS ORDERED: ANGIOMAX 250 MG VIAL IV ONE ×2 (15:08→16:17)
[2022-09-07] MEDS ORDERED: SODIUM CHL 0.9% 0 ML ONE (15:09)
[2022-09-07] MEDS ORDERED: hydrALAZINE HCL 20 MG/ML VL ONE (15:32)
[2022-09-07] MEDS ORDERED: IODIXANOL 320MG/ML 100ML BTL IV ONE (15:37)
[2022-09-07] MEDS ORDERED: METOPROLOL TARTRATE 1MG/1ML-5ML VIAL IV ONE (15:58)
[2022-09-07] MEDS ORDERED: HYDROmorphone HCL 2 MG/ML VL/or syr ONE (16:07)
[2022-09-07] MEDS ORDERED: SODIUM CHL 0.9% 50 ML ONE (16:17)
[2022-09-07] MEDS: ASPirin-EC 81 mg tab PO SCH (18:47)
[2022-09-07] MEDS: SODIUM CHLORIDE 0.9% 1,000 ML IV SCH ×2 (20:00)
[2022-09-07] MEDS: ATORVASTATIN 20 MG TAB PO SCH (22:12)
[2022-09-07] MEDS: RIVAROXABAN 10 MG TAB PO SCH (22:13)
[2022-09-08] MEDS: InsuLIN REG 1unit/0.01ml Soln (100units/ml) SC SCH ×5 (00:29→22:42)
[2022-09-08] MEDS: ACCU-CHEK COMFORT CURVE STRIP VI SCH ×5 (00:34→22:41)
[2022-09-08 05:00] VITALS: BP 138/52
[2022-09-08] MEDS: DAKINS QUARTER STR 0.125% (NaHypochlorite) 473 ML TOPICAL SOL TOP SCH ×3 (06:32→23:00)
[2022-09-08] MEDS: GABAPENTIN 100 MG CAP PO SCH ×3 (06:33→22:45)
[2022-09-08] MEDS: KETOCONAZOLE 2 % TOPICAL CREAM 15GM TOP SCH ×3 (06:33→23:00)
[2022-09-08 09:00] VITALS: BP 140/64
[2022-09-08] MEDS: CLOPIDOGREL BISULFATE 75 MG TAB PO SCH (09:08)
[2022-09-08] MEDS: BENAZEPRIL HCL 10 MG TAB PO SCH ×2 (09:08→22:00)
[2022-09-08] MEDS: MAGNESIUM OXIDE 400 MG TAB PO SCH (09:09)
[2022-09-08] MEDS: CILOSTAZOL 100 MG TAB PO SCH (09:10)
[2022-09-08] MEDS: RIVAROXABAN 10 MG TAB PO SCH ×2 (09:11→22:45)
[2022-09-08] MEDS: NEOMYCIN-BACITRACIN-POLYM UNITDOSE PKG TOP OINT TOP SCH (09:12)
[2022-09-08] MEDS: HYDROmorphone HCL 2 MG/ML VL/or syr IV PRN (09:19)
[2022-09-08] MEDS: traMADol HCL 50 MG TAB PO PRN (12:25)
[2022-09-08 12:34] VITALS: BP 121/55
[2022-09-08] MEDS ORDERED: FUROSEMIDE 20 MG/2 ML VIAL IV ONE (15:30)
[2022-09-08 16:34] VITALS: BP 147/64
[2022-09-08] MEDS: ASPirin-EC 81 mg tab PO SCH (18:19)
[2022-09-08] MEDS: hydrALAZINE HCL 20 MG/ML VL IV PRN (21:20)
[2022-09-08 22:00] VITALS: BP 171/70
[2022-09-08] MEDS: ATORVASTATIN 20 MG TAB PO SCH (22:45)
[2022-09-09] VITALS (7 sets, daily range): BP systolic 117–132; BP diastolic 31–57
[2022-09-09] MEDS: GABAPENTIN 100 MG CAP PO SCH ×3 (05:57→22:05)
[2022-09-09] MEDS: ACCU-CHEK COMFORT CURVE STRIP VI SCH ×4 (06:17→22:19)
[2022-09-09] MEDS: InsuLIN REG 1unit/0.01ml Soln (100units/ml) SC SCH ×4 (06:19→22:00)
[2022-09-09] MEDS: CLOPIDOGREL BISULFATE 75 MG TAB PO SCH (09:51)
[2022-09-09] MEDS: BENAZEPRIL HCL 10 MG TAB PO SCH ×2 (09:51→22:16)
[2022-09-09] MEDS: RIVAROXABAN 10 MG TAB PO SCH ×2 (09:51→22:15)
[2022-09-09] MEDS: MAGNESIUM OXIDE 400 MG TAB PO SCH (09:51)
[2022-09-09] MEDS: CILOSTAZOL 100 MG TAB PO SCH (09:51)
[2022-09-09] MEDS: DAKINS QUARTER STR 0.125% (NaHypochlorite) 473 ML TOPICAL SOL TOP SCH ×2 (09:52→22:19)
[2022-09-09] MEDS: KETOCONAZOLE 2 % TOPICAL CREAM 15GM TOP SCH ×2 (09:52→22:18)
[2022-09-09] MEDS: NEOMYCIN-BACITRACIN-POLYM UNITDOSE PKG TOP OINT TOP SCH (09:52)
[2022-09-09] MEDS: HYDROmorphone HCL 2 MG/ML VL/or syr IV PRN ×3 (09:52→20:40)
[2022-09-09] MEDS: ASPirin-EC 81 mg tab PO SCH (17:30)
[2022-09-09] MEDS: ATORVASTATIN 20 MG TAB PO SCH (22:05)
[2022-09-09] MEDS: METOPROLOL TARTRATE 25 MG TAB PO SCH (22:18)
[2022-09-10 04:57] VITALS: BP 128/35
[2022-09-10] MEDS: METOPROLOL TARTRATE 25 MG TAB PO SCH ×2 (06:26→14:13)
[2022-09-10] MEDS: ACCU-CHEK COMFORT CURVE STRIP VI SCH ×4 (06:27→22:02)
[2022-09-10] MEDS: GABAPENTIN 100 MG CAP PO SCH ×3 (06:27→21:59)
[2022-09-10] MEDS: InsuLIN REG 1unit/0.01ml Soln (100units/ml) SC SCH ×4 (06:27→22:05)
[2022-09-10] MEDS ORDERED: ACETAMINOPHEN IV 100 ML IV ONE (07:02)
[2022-09-10] MEDS ORDERED: CELECOXIB 100 MG CAP ONE (07:02)
[2022-09-10] MEDS ORDERED: PREGABALIN CAPSULE 75 MG CAP ONE (07:02)
[2022-09-10 08:25] VITALS: BP 137/41
[2022-09-10] MEDS: CLOPIDOGREL BISULFATE 75 MG TAB PO SCH (09:18)
[2022-09-10] MEDS: MAGNESIUM OXIDE 400 MG TAB PO SCH (09:18)
[2022-09-10] MEDS: BENAZEPRIL HCL 10 MG TAB PO SCH ×2 (09:18→21:59)
[2022-09-10] MEDS: RIVAROXABAN 10 MG TAB PO SCH ×2 (09:19→22:00)
[2022-09-10] MEDS: CILOSTAZOL 100 MG TAB PO SCH (09:19)
[2022-09-10] MEDS ORDERED: CLINDAMYCIN 600MG IV 50 ML IV ONE (10:15)
[2022-09-10 10:36] LABS: Basophils # (auto) 0 10 ^3/uL (0-0.2); Basophils % (auto) 0.4 % (0.0-2.0); Eosinophils # (auto) 0.1 10 ^3/uL (0-0.8); Eosinophils % (auto) 0.7 % (0.0-7.0); Hemoglobin 8.4 g/dL (12.2-16.2); Nucleated Red Blood Cells % 0.1 %
[2022-09-10 10:37] LABS: Hematocrit 24.7 % (36.0-46.0); Lymphocytes % (auto) 10.5 % (10.0-50.0); Mean Corpuscular Hgb Conc. 34.2 g/dL (32.0-36.0); Mean Corpuscular Volume 90.9 fL (80.0-100.0); Monocytes # (auto) 1.3 10 ^3/uL (0-1.3); Neutrophils # (auto) 6.8 10 ^3/uL (1.6-8.6); Neutrophils % (auto) 74.4 % (37.0-80.0); Red Blood Cells 2.72 10^6/uL (4.0-5.20); Red Cell Distribution Width 13.8 % (11.8-14.3); White Blood Cell 9.2 10^3/uL (4.4-10.8)
[2022-09-10 10:56] LABS: BUN/Creatinine Ratio 27.5; Calcium 7.7 mg/dL (8.5-10.1); Potassium 4.7 mmol/L (3.5-5.1)
[2022-09-10] MEDS: ACETAMINOPHEN 325 MG TAB PO PRN (11:19)
[2022-09-10] MEDS: DAKINS QUARTER STR 0.125% (NaHypochlorite) 473 ML TOPICAL SOL TOP SCH ×2 (11:20→22:02)
[2022-09-10] MEDS: KETOCONAZOLE 2 % TOPICAL CREAM 15GM TOP SCH ×2 (11:20→22:02)
[2022-09-10] MEDS: NEOMYCIN-BACITRACIN-POLYM UNITDOSE PKG TOP OINT TOP SCH (11:21)
[2022-09-10 12:30] VITALS: BP_SYST 125; BP_SYST 160; BP_DIAS 46; BP_DIAS 61
[2022-09-10] MEDS: CLINDAMYCIN 600MG IV 50 ML IV SCH ×2 (14:06→21:59)
[2022-09-10 16:25] VITALS: BP 127/74
[2022-09-10] MEDS: ASPirin-EC 81 mg tab PO SCH (18:25)
[2022-09-10 20:00] VITALS: BP 148/61
[2022-09-10] MEDS: ATORVASTATIN 20 MG TAB PO SCH (21:59)
[2022-09-10 22:31] VITALS: BP 148/61
[2022-09-11 05:08] VITALS: BP 124/50
[2022-09-11] MEDS: CLINDAMYCIN 600MG IV 50 ML IV SCH ×3 (05:42→22:40)
[2022-09-11] MEDS: GABAPENTIN 100 MG CAP PO SCH ×3 (05:43→22:37)
[2022-09-11] MEDS: ACCU-CHEK COMFORT CURVE STRIP VI SCH ×4 (06:09→22:39)
[2022-09-11] MEDS: InsuLIN REG 1unit/0.01ml Soln (100units/ml) SC SCH ×4 (06:09→23:13)
[2022-09-11 09:00] VITALS: BP 158/76
[2022-09-11] MEDS: ACETAMINOPHEN 325 MG TAB PO PRN (09:00)
[2022-09-11] MEDS: dilTIAZem HCL 180MG ER CAP PO SCH (09:52)
[2022-09-11] MEDS: CLOPIDOGREL BISULFATE 75 MG TAB PO SCH (09:53)
[2022-09-11] MEDS: BENAZEPRIL HCL 10 MG TAB PO SCH ×2 (09:53→22:38)
[2022-09-11] MEDS: RIVAROXABAN 10 MG TAB PO SCH ×2 (09:54→22:37)
[2022-09-11] MEDS: MAGNESIUM OXIDE 400 MG TAB PO SCH (09:54)
[2022-09-11] MEDS: CILOSTAZOL 100 MG TAB PO SCH (09:54)
[2022-09-11] MEDS: KETOCONAZOLE 2 % TOPICAL CREAM 15GM TOP SCH ×2 (10:01→22:39)
[2022-09-11] MEDS: DAKINS QUARTER STR 0.125% (NaHypochlorite) 473 ML TOPICAL SOL TOP SCH ×2 (10:01→22:38)
[2022-09-11] MEDS: NEOMYCIN-BACITRACIN-POLYM UNITDOSE PKG TOP OINT TOP SCH (10:01)
[2022-09-11] MEDS: MORPHINE SULFATE INJ 2 MG/ml SYRG IV PRN ×2 (10:01→15:30)
[2022-09-11 13:00] VITALS: BP 133/56
[2022-09-11 17:00] VITALS: BP 117/53
[2022-09-11] MEDS: ASPirin-EC 81 mg tab PO SCH (18:13)
[2022-09-11 21:30] VITALS: BP 158/52
[2022-09-11] MEDS: ATORVASTATIN 20 MG TAB PO SCH (22:36)
[2022-09-11] MEDS: traMADol HCL 50 MG TAB PO PRN (22:46)
[2022-09-12] MEDS: ACETAMINOPHEN 325 MG TAB PO PRN ×2 (03:00→16:12)
[2022-09-12 05:00] VITALS: BP 104/43
[2022-09-12] MEDS: GABAPENTIN 100 MG CAP PO SCH ×3 (05:13→22:33)
[2022-09-12] MEDS: CLINDAMYCIN 600MG IV 50 ML IV SCH ×3 (05:14→22:33)
[2022-09-12] MEDS: InsuLIN REG 1unit/0.01ml Soln (100units/ml) SC SCH ×4 (06:01→22:35)
[2022-09-12] MEDS: ACCU-CHEK COMFORT CURVE STRIP VI SCH ×4 (06:01→22:34)
[2022-09-12 08:45] VITALS: BP 109/41
[2022-09-12] MEDS: RIVAROXABAN 10 MG TAB PO SCH ×2 (10:10→22:34)
[2022-09-12] MEDS: CILOSTAZOL 100 MG TAB PO SCH (10:11)
[2022-09-12] MEDS: dilTIAZem HCL 180MG ER CAP PO SCH (10:11)
[2022-09-12] MEDS: MAGNESIUM OXIDE 400 MG TAB PO SCH (10:12)
[2022-09-12] MEDS: BENAZEPRIL HCL 10 MG TAB PO SCH ×2 (10:12→22:33)
[2022-09-12] MEDS: CLOPIDOGREL BISULFATE 75 MG TAB PO SCH (10:12)
[2022-09-12] MEDS: KETOCONAZOLE 2 % TOPICAL CREAM 15GM TOP SCH ×2 (10:13→22:35)
[2022-09-12] MEDS: DAKINS QUARTER STR 0.125% (NaHypochlorite) 473 ML TOPICAL SOL TOP SCH ×2 (10:13→22:35)
[2022-09-12] MEDS: NEOMYCIN-BACITRACIN-POLYM UNITDOSE PKG TOP OINT TOP SCH (10:13)
[2022-09-12 12:25] VITALS: BP 119/44
[2022-09-12] MEDS: traMADol HCL 50 MG TAB PO PRN (16:08)
[2022-09-12 16:18] VITALS: BP 132/40
[2022-09-12] MEDS: ASPirin-EC 81 mg tab PO SCH (17:37)
[2022-09-12 22:00] VITALS: BP 145/48
[2022-09-12] MEDS: ATORVASTATIN 20 MG TAB PO SCH (22:33)
[2022-09-13 05:00] VITALS: BP 130/44
[2022-09-13] MEDS: CLINDAMYCIN 600MG IV 50 ML IV SCH ×3 (05:52→21:01)
[2022-09-13] MEDS: GABAPENTIN 100 MG CAP PO SCH ×3 (05:52→21:00)
[2022-09-13] MEDS: ACCU-CHEK COMFORT CURVE STRIP VI SCH ×4 (06:41→22:03)
[2022-09-13] MEDS: InsuLIN REG 1unit/0.01ml Soln (100units/ml) SC SCH ×4 (06:48→21:37)
[2022-09-13 09:00] VITALS: BP 158/51
[2022-09-13] MEDS: CLOPIDOGREL BISULFATE 75 MG TAB PO SCH (10:08)
[2022-09-13] MEDS: CILOSTAZOL 100 MG TAB PO SCH (10:09)
[2022-09-13] MEDS: MAGNESIUM OXIDE 400 MG TAB PO SCH (10:10)
[2022-09-13] MEDS: dilTIAZem HCL 180MG ER CAP PO SCH (10:10)
[2022-09-13] MEDS: RIVAROXABAN 10 MG TAB PO SCH ×2 (10:12→21:08)
[2022-09-13] MEDS: BENAZEPRIL HCL 10 MG TAB PO SCH ×2 (10:12→22:05)
[2022-09-13] MEDS: DAKINS QUARTER STR 0.125% (NaHypochlorite) 473 ML TOPICAL SOL TOP SCH ×2 (10:13→22:05)
[2022-09-13] MEDS: KETOCONAZOLE 2 % TOPICAL CREAM 15GM TOP SCH ×2 (10:13→22:06)
[2022-09-13] MEDS: NEOMYCIN-BACITRACIN-POLYM UNITDOSE PKG TOP OINT TOP SCH (10:13)
[2022-09-13 12:30] VITALS: BP 174/54
[2022-09-13] MEDS: MORPHINE SULFATE INJ 2 MG/ml SYRG IV PRN ×2 (12:52→20:02)
[2022-09-13 16:43] VITALS: BP 143/53
[2022-09-13] MEDS: ASPirin-EC 81 mg tab PO SCH (17:55)
[2022-09-13] MEDS: ATORVASTATIN 20 MG TAB PO SCH (21:00)
[2022-09-13 22:00] VITALS: BP 160/52
[2022-09-14 05:00] VITALS: BP 105/51
[2022-09-14] MEDS: GABAPENTIN 100 MG CAP PO SCH ×3 (05:19→22:44)
[2022-09-14] MEDS: CLINDAMYCIN 600MG IV 50 ML IV SCH ×3 (05:19→22:42)
[2022-09-14] MEDS: traMADol HCL 50 MG TAB PO PRN (06:41)
[2022-09-14] MEDS: ACCU-CHEK COMFORT CURVE STRIP VI SCH ×4 (06:48→22:00)
[2022-09-14] MEDS: InsuLIN REG 1unit/0.01ml Soln (100units/ml) SC SCH ×4 (06:48→22:00)
[2022-09-14 09:00] VITALS: BP 164/62
[2022-09-14] MEDS: dilTIAZem HCL 180MG ER CAP PO SCH (09:27)
[2022-09-14] MEDS: BENAZEPRIL HCL 10 MG TAB PO SCH ×2 (09:28→22:43)
[2022-09-14] MEDS: MAGNESIUM OXIDE 400 MG TAB PO SCH (09:28)
[2022-09-14] MEDS: RIVAROXABAN 10 MG TAB PO SCH ×2 (09:29→22:44)
[2022-09-14] MEDS: CLOPIDOGREL BISULFATE 75 MG TAB PO SCH (09:29)
[2022-09-14] MEDS: CILOSTAZOL 100 MG TAB PO SCH (10:26)
[2022-09-14] MEDS: KETOCONAZOLE 2 % TOPICAL CREAM 15GM TOP SCH ×2 (10:27→22:42)
[2022-09-14] MEDS: NEOMYCIN-BACITRACIN-POLYM UNITDOSE PKG TOP OINT TOP SCH (10:27)
[2022-09-14] MEDS: DAKINS QUARTER STR 0.125% (NaHypochlorite) 473 ML TOPICAL SOL TOP SCH ×2 (10:27→22:42)
[2022-09-14 13:00] VITALS: BP 175/63
[2022-09-14] MEDS: MORPHINE SULFATE INJ 2 MG/ml SYRG IV PRN (13:46)
[2022-09-14] MEDS: hydrALAZINE HCL 20 MG/ML VL IV PRN (13:47)
[2022-09-14 17:00] VITALS: BP 124/45
[2022-09-14] MEDS: ASPirin-EC 81 mg tab PO SCH (17:45)
[2022-09-14 22:00] VITALS: BP 136/62
[2022-09-14] MEDS: ATORVASTATIN 20 MG TAB PO SCH (22:43)
[2022-09-15 05:00] VITALS: BP 115/58
[2022-09-15] MEDS: ACCU-CHEK COMFORT CURVE STRIP VI SCH ×3 (05:20→17:00)
[2022-09-15] MEDS: GABAPENTIN 100 MG CAP PO SCH ×2 (05:20→14:01)
[2022-09-15] MEDS: CLINDAMYCIN 600MG IV 50 ML IV SCH ×2 (05:20→14:01)
[2022-09-15] MEDS: InsuLIN REG 1unit/0.01ml Soln (100units/ml) SC SCH ×3 (05:29→17:00)
[2022-09-15] MEDS: traMADol HCL 50 MG TAB PO PRN (06:00)
[2022-09-15 08:00] VITALS: BP 113/36
[2022-09-15] MEDS: MAGNESIUM OXIDE 400 MG TAB PO SCH (10:54)
[2022-09-15] MEDS: CLOPIDOGREL BISULFATE 75 MG TAB PO SCH (10:54)
[2022-09-15] MEDS: dilTIAZem HCL 180MG ER CAP PO SCH (10:54)
[2022-09-15] MEDS: NEOMYCIN-BACITRACIN-POLYM UNITDOSE PKG TOP OINT TOP SCH (10:55)
[2022-09-15] MEDS: CILOSTAZOL 100 MG TAB PO SCH (10:55)
[2022-09-15] MEDS: RIVAROXABAN 10 MG TAB PO SCH (10:55)
[2022-09-15] MEDS: BENAZEPRIL HCL 10 MG TAB PO SCH (10:55)
[2022-09-15] MEDS: KETOCONAZOLE 2 % TOPICAL CREAM 15GM TOP SCH (10:55)
[2022-09-15] MEDS: DAKINS QUARTER STR 0.125% (NaHypochlorite) 473 ML TOPICAL SOL TOP SCH (10:56)
[2022-09-15 12:00] VITALS: BP 159/60
[2022-09-15] MEDS: hydrALAZINE HCL 20 MG/ML VL IV PRN (12:33)
[2022-09-15 15:15] VITALS: BP 159/60
[2022-09-15 16:00] VITALS: BP 123/48
== END 2022-09-15 16:43 | DRG 175 ==
LOC: ER 17:41 → TELE 22:01 → TELE-WESTW 08-29 21:00
PROVIDERS: ADMIT Nurse Practitioner Family; ATTEND Family Medicine
PROC: B418YZZ Fluoroscopy of Bilateral Renal Arteries using Other Contrast (ICD-10-PCS; 2022-08-31)
PROC: 4A023N7 Measurement of Cardiac Sampling and Pressure, Left Heart, Percutaneous Approach (ICD-10-PCS; 2022-08-31)
PROC: B211YZZ Fluoroscopy of Multiple Coronary Arteries using Other Contrast (ICD-10-PCS; 2022-08-31)
PROC: B215YZZ Fluoroscopy of Left Heart using Other Contrast (ICD-10-PCS; 2022-08-31)
PROC: 027337Z Dilation of Coronary Artery, Four or More Arteries with Four or More Drug-eluting Intraluminal Devices, Percutaneous Approach (ICD-10-PCS; principal; 2022-09-03)
PROC: B211YZZ Fluoroscopy of Multiple Coronary Arteries using Other Contrast (ICD-10-PCS; 2022-09-03)
PROC: B241ZZ3 Ultrasonography of Multiple Coronary Arteries, Intravascular (ICD-10-PCS; 2022-09-03)
PROC: 047C3ZZ Dilation of Right Common Iliac Artery, Percutaneous Approach (ICD-10-PCS; 2022-09-05)
PROC: 047M3ZZ Dilation of Right Popliteal Artery, Percutaneous Approach (ICD-10-PCS; 2022-09-05)
PROC: 047K34Z Dilation of Right Femoral Artery with Drug-eluting Intraluminal Device, Percutaneous Approach (ICD-10-PCS; 2022-09-05)
PROC: B41FYZZ Fluoroscopy of Right Lower Extremity Arteries using Other Contrast (ICD-10-PCS; 2022-09-05)
PROC: 047P34Z Dilation of Right Anterior Tibial Artery with Drug-eluting Intraluminal Device, Percutaneous Approach (ICD-10-PCS; 2022-09-05)
PROC: 047N3ZZ Dilation of Left Popliteal Artery, Percutaneous Approach (ICD-10-PCS; 2022-09-07)
PROC: 047L3DZ Dilation of Left Femoral Artery with Intraluminal Device, Percutaneous Approach (ICD-10-PCS; 2022-09-07)
PROC: B41GYZZ Fluoroscopy of Left Lower Extremity Arteries using Other Contrast (ICD-10-PCS; 2022-09-07)
PROC: 05HC33Z Insertion of Infusion Device into Left Basilic Vein, Percutaneous Approach (ICD-10-PCS; 2022-09-11)
PROC: B54NZZA Ultrasonography of Left Upper Extremity Veins, Guidance (ICD-10-PCS; 2022-09-11)
DX: I25.10 Atherosclerotic heart disease of native coronary artery without angina pectoris (principal); I50.33 Acute on chronic diastolic (congestive) heart failure; L03.115 Cellulitis of right lower limb; E87.1 Hypo-osmolality and hyponatremia; I13.0 Hypertensive heart and chronic kidney disease with heart failure and stage 1 through stage 4 chronic kidney disease, or unspecified chronic kidney disease; E11.51 Type 2 diabetes mellitus with diabetic peripheral angiopathy without gangrene; L03.116 Cellulitis of left lower limb; I95.9 Hypotension, unspecified; L97.511 Non-pressure chronic ulcer of other part of right foot limited to breakdown of skin; E11.621 Type 2 diabetes mellitus with foot ulcer; E03.9 Hypothyroidism, unspecified; I16.1 Hypertensive emergency; I65.23 Occlusion and stenosis of bilateral carotid arteries; M54.50 Low back pain, unspecified; E78.5 Hyperlipidemia, unspecified; Z20.822 Contact with and (suspected) exposure to COVID-19; E11.65 Type 2 diabetes mellitus with hyperglycemia; E66.9 Obesity, unspecified; E83.42 Hypomagnesemia; I70.1 Atherosclerosis of renal artery; N18.9 Chronic kidney disease, unspecified; Z68.27 Body mass index [BMI] 27.0-27.9, adult; Z79.01 Long term (current) use of anticoagulants; Z79.02 Long term (current) use of antithrombotics/antiplatelets; Z79.899 Other long term (current) drug therapy; Z86.73 Personal history of transient ischemic attack (TIA), and cerebral infarction without residual deficits; Z83.3 Family history of diabetes mellitus; Z82.49 Family history of ischemic heart disease and other diseases of the circulatory system; Z95.1 Presence of aortocoronary bypass graft; Z90.49 Acquired absence of other specified parts of digestive tract; Z79.84 Long term (current) use of oral hypoglycemic drugs
CPT/HCPCS: 36415; 71045; 74177; 74181; 78452; 80048; 80053; 80061; 81001; 82962; 83036; 83735; 83880; 84443; 84484; 85025; 85610; 85730; 86850; 86900; 86901; 87081; 87426; 93005; 93017; 93306; 93886; 93925; 93926; 93971; 95819; 96361; 96365; 96375; 97110; 97116; 97163; 97530; 99152; 99153; C1725; C1769; C1874; C9113; G0378; J0131; J0153; J1815; J2250; J3490; Q9967

== ENCOUNTER 2022-12-10 04:04 | Inpatient (IN) | payer MEDICAID ==
[~2022-12-10] VITALS: Ht 154.9 cm; Wt 61.2 kg
[~2022-12-10 04:04] MED LIST changes: +KETO2CRE4 TOP; +NEOM1OIN18 EX; +[UNRECOGNIZED DRUG - CODE] EX
[2022-12-10 05:09] LABS: Basophils # (auto) 0.2 10 ^3/uL (0-0.2); Basophils % (auto) 1.4 % (0.0-2.0); Eosinophils # (auto) 0.9 10 ^3/uL (0-0.8); Eosinophils % (auto) 7.4 % (0.0-7.0); Hemoglobin 12.2 g/dL (12.2-16.2); Lymphocytes # (auto) 4.2 10 ^3/uL (0.4-5.4); Lymphocytes % (auto) 34.1 % (10.0-50.0); Mean Corpuscular Hemoglobin 27.7 pg (28.0-32.0); Mean Corpuscular Hgb Conc. 32.9 g/dL (32.0-36.0); Mean Corpuscular Volume 84.2 fL (80.0-100.0); Monocytes # (auto) 1.1 10 ^3/uL (0-1.3); Monocytes % (auto) 8.9 % (0.0-12.0); Neutrophils % (auto) 48.2 % (37.0-80.0); Nucleated Red Blood Cells % 0.1 %; White Blood Cell 12.5 10^3/uL (4.4-10.8)
[2022-12-10 05:10] LABS: Red Cell Distribution Width 20.3 % (11.8-14.3)
[2022-12-10 05:25] LABS: Albumin 3.4 g/dL (3.4-5.0); Calcium 8.3 mg/dL (8.5-10.1); Potassium 3.8 mmol/L (3.5-5.1)
[2022-12-10 05:29] LABS: BUN/Creatinine Ratio 24.7 (10.0-20.0); Bilirubin, Total 0.5 mg/dL (0.2-1.0); Total Protein 6.8 g/dL (6.4-8.2)
[2022-12-10] MEDS ORDERED: SODIUM CHLORIDE 0.9% 1,000 ML IV ONE (08:00)
[2022-12-10] MEDS ORDERED: DEXTROSE (50%) 50ML SYRG IV PRN (09:30)
[2022-12-10] MEDS ORDERED: ATOR40TA52 PO (09:35)
[2022-12-10] MEDS: BENAZEPRIL HCL 10 MG TAB PO SCH ×2 (09:47→22:00)
[2022-12-10] MEDS: amLODIPine BESYLATE 5 MG TAB PO SCH ×2 (09:48→22:00)
[2022-12-10] MEDS: SOD CHL 0.45% 1,000 ML IV SCH ×2 (09:48→23:05)
[2022-12-10] MEDS: METOPROLOL TARTRATE 50 MG TAB PO SCH ×2 (09:51→22:00)
[2022-12-10 10:31] LABS: Free T3 3.15 pg/mL (2.3-4.2); Free T4 (Free Thyroxine) 1.11 ng/dL (0.89-1.76)
[2022-12-10] MEDS: hydrALAZINE HCL 20 MG/ML VL IV PRN (10:31)
[2022-12-10] MEDS ORDERED: IOHEXOL 350 MG/ML 100ML IJ ONE (10:40)
[2022-12-10 10:43] LABS: Cholesterol 112 mg/dL (< 200); HDL Cholesterol 35 mg/dL (40-59); LDL Cholesterol 55 mg/dL (< 100); Triglycerides 226 mg/dL (< 150)
[2022-12-10] MEDS ORDERED: PANTOPRAZOLE 40 MG/10 ML VIAL INJ IV ONE (10:45)
[2022-12-10] MEDS ORDERED: GABAPENTIN 300 MG CAP PO SCH (10:45)
[2022-12-10] MEDS ORDERED: MORPHINE SULFATE INJ 2 MG/ml SYRG IV PRN (10:45)
[2022-12-10] MEDS ORDERED: ENOXAPARIN SOD 100 MG/1 ML SYRINGE SC ONE (10:45)
[2022-12-10] MEDS ORDERED: NITROGLYCERIN 0.4 MG SL TAB SL PRN (10:45)
[2022-12-10] MEDS ORDERED: MORPHINE SULFATE INJ 2 MG/ml SYRG IV ONE ×2 (11:15→16:45)
[2022-12-10] MEDS: InsuLIN REG 1unit/0.01ml Soln (100units/ml) SC SCH ×3 (11:30→22:00)
[2022-12-10] MEDS: ACCU-CHEK COMFORT CURVE STRIP VI SCH ×3 (11:37→22:18)
[2022-12-10] MEDS: GABAPENTIN 300 MG CAP PO SCH ×2 (13:19→22:24)
[2022-12-10] MEDS: ASPirin-EC 81 mg tab PO SCH (17:35)
[2022-12-11 03:36] VITALS: BP 130/58
[2022-12-11 05:00] VITALS: BP 130/58
[2022-12-11] MEDS: GABAPENTIN 100 MG CAP PO SCH ×3 (06:01→23:02)
[2022-12-11 06:04] LABS: Basophils # (auto) 0.1 10 ^3/uL (0-0.2); Basophils % (auto) 0.7 % (0.0-2.0); Eosinophils # (auto) 0.8 10 ^3/uL (0-0.8); Eosinophils % (auto) 6.9 % (0.0-7.0); Hemoglobin 10.4 g/dL (12.2-16.2); Lymphocytes # (auto) 3.7 10 ^3/uL (0.4-5.4); Lymphocytes % (auto) 31.1 % (10.0-50.0); Mean Corpuscular Hemoglobin 27.5 pg (28.0-32.0); Mean Corpuscular Hgb Conc. 32.6 g/dL (32.0-36.0); Mean Corpuscular Volume 84.5 fL (80.0-100.0); Monocytes # (auto) 1.1 10 ^3/uL (0-1.3); Monocytes % (auto) 9.1 % (0.0-12.0); Neutrophils # (auto) 6.1 10 ^3/uL (1.6-8.6); Neutrophils % (auto) 52.2 % (37.0-80.0); Nucleated Red Blood Cells % 0.1 %; Red Blood Cells 3.78 10^6/uL (4.0-5.20); White Blood Cell 11.8 10^3/uL (4.4-10.8)
[2022-12-11 06:17] LABS: Potassium 3.4 mmol/L (3.5-5.1)
[2022-12-11 06:27] LABS: Bilirubin, Total 0.5 mg/dL (0.2-1.0); Calcium 7.7 mg/dL (8.5-10.1); Total Protein 5.9 g/dL (6.4-8.2)
[2022-12-11] MEDS: ACCU-CHEK COMFORT CURVE STRIP VI SCH ×4 (06:37→23:17)
[2022-12-11] MEDS: InsuLIN REG 1unit/0.01ml Soln (100units/ml) SC SCH ×4 (06:38→23:18)
[2022-12-11 09:00] VITALS: BP 141/65
[2022-12-11] MEDS: amLODIPine BESYLATE 5 MG TAB PO SCH ×2 (09:12→23:02)
[2022-12-11] MEDS: BENAZEPRIL HCL 10 MG TAB PO SCH ×2 (09:13→23:01)
[2022-12-11] MEDS: ENOXAPARIN SOD 40 MG/0.4 ML SYRINGE SC SCH (09:13)
[2022-12-11] MEDS: METOPROLOL TARTRATE 50 MG TAB PO SCH ×2 (09:13→23:02)
[2022-12-11] MEDS ORDERED: PANTOPRAZOLE 40 MG/10 ML VIAL INJ IV SCH (10:00)
[2022-12-11 12:02] LABS: Urine Bacteria None Seen /hpf (None Seen)
[2022-12-11 12:03] LABS: Urine Specific Gravity 1.027 (1.001-1.035)
[2022-12-11 12:04] LABS: Urine Blood Negative /uL (Negative)
[2022-12-11 12:05] LABS: Urine WBC 1 /hpf (0 - 5)
[2022-12-11] MEDS: SOD CHL 0.45% 1,000 ML IV SCH ×2 (12:25→20:00)
[2022-12-11 17:00] VITALS: BP 137/58
[2022-12-11] MEDS: ASPirin-EC 81 mg tab PO SCH (18:16)
[2022-12-11 22:00] VITALS: BP 158/58
[2022-12-12] VITALS (12 sets, daily range): BP systolic 115–179; BP diastolic 42–79
[2022-12-12] MEDS: GABAPENTIN 100 MG CAP PO SCH ×3 (05:37→22:22)
[2022-12-12] MEDS: ACCU-CHEK COMFORT CURVE STRIP VI SCH ×4 (05:43→22:24)
[2022-12-12] MEDS: InsuLIN REG 1unit/0.01ml Soln (100units/ml) SC SCH ×4 (05:43→22:33)
[2022-12-12] MEDS: METOPROLOL TARTRATE 50 MG TAB PO SCH ×2 (08:36→22:23)
[2022-12-12] MEDS: BENAZEPRIL HCL 10 MG TAB PO SCH ×2 (08:36→22:22)
[2022-12-12] MEDS: amLODIPine BESYLATE 5 MG TAB PO SCH ×2 (08:36→22:22)
[2022-12-12] MEDS: ENOXAPARIN SOD 40 MG/0.4 ML SYRINGE SC SCH (08:37)
[2022-12-12] MEDS: CLOPIDOGREL BISULFATE 75 MG TAB PO SCH (08:37)
[2022-12-12] MEDS ORDERED: ONDANSETRON HCL 4 MG/2 ML VIAL IV ONE (08:45)
[2022-12-12] MEDS ORDERED: hydrALAZINE HCL 20 MG/ML VL IV ONE (08:45)
[2022-12-12] MEDS ORDERED: IODIXANOL 320MG/ML 100ML BTL IV ONE (09:04)
[2022-12-12] MEDS ORDERED: LIDOCAINE 2%HCL (LOCAL ANESTH.) INJ 20ML MDV ONE (09:04)
[2022-12-12 09:08] LABS: Hematocrit 32.2 % (36.0-46.0); Hemoglobin 10.6 g/dL (12.2-16.2); Mean Corpuscular Hemoglobin 27.4 pg (28.0-32.0); Mean Corpuscular Hgb Conc. 32.9 g/dL (32.0-36.0); Mean Corpuscular Volume 83.2 fL (80.0-100.0); Red Blood Cells 3.87 10^6/uL (4.0-5.20)
[2022-12-12 09:18] LABS: BUN/Creatinine Ratio 26.5 (10.0-20.0); Calcium 7.8 mg/dL (8.5-10.1); Potassium 3.7 mmol/L (3.5-5.1)
[2022-12-12 09:20] LABS: Red Cell Distribution Width 20.7 % (11.8-14.3)
[2022-12-12 09:22] LABS: Band Neutrophils % (manual) 0; Basophils % (manual) 0 (0.0-2.0); Blast Cells 0; Metamyelocytes % 0; Myelocytes % 0; Promyelocytes % 0; Reactive Lymphocytes 0
[2022-12-12 09:24] LABS: INR 1.01 (0.9-1.15); Partial Thromboplastin Time 26.8 sec (24.6-33.4)
[2022-12-12] MEDS ORDERED: ANGIOMAX 250 MG VIAL IV ONE (09:58)
[2022-12-12] MEDS ORDERED: fentaNYL CITRATE 100 MCG/2 ML VL ONE (09:58)
[2022-12-12] MEDS ORDERED: MIDAZOLAM HCL 2MG/2ML 2ml VIAL (1mg/ml) ONE (09:59)
[2022-12-12] MEDS ORDERED: SODIUM CHL 0.9% 50 ML ONE (09:59)
[2022-12-12 12:08] LABS: Eosinophils % (manual) 6 (0-7); Lymphocytes % (manual) 30 (10.0-50.0); Monocytes % (manual) 14 (0-12)
[2022-12-12] MEDS ORDERED: CLOPIDOGREL BISULFATE 75 MG TAB ONE (12:12)
[2022-12-12] MEDS ORDERED: hydrALAZINE HCL 20 MG/ML VL ONE (12:12)
[2022-12-12] MEDS: SOD CHL 0.45% 1,000 ML IV SCH (15:05)
[2022-12-12] MEDS ORDERED: MORPHINE SULFATE INJ 2 MG/ml SYRG IV PRN (15:15)
[2022-12-12] MEDS: HYDROmorphone HCL 2 MG/ML VL/or syr IV PRN (16:24)
[2022-12-12] MEDS: CILOSTAZOL 100 MG TAB PO SCH (22:16)
[2022-12-12] MEDS: ATORVASTATIN 20 MG TAB PO SCH (22:16)
[2022-12-12] MEDS: RIVAROXABAN 10 MG TAB PO SCH (22:24)
[2022-12-13 05:00] VITALS: BP 166/67
[2022-12-13] MEDS: GABAPENTIN 100 MG CAP PO SCH ×3 (05:43→21:52)
[2022-12-13] MEDS: SOD CHL 0.45% 1,000 ML IV SCH ×2 (05:48→17:45)
[2022-12-13] MEDS: ACCU-CHEK COMFORT CURVE STRIP VI SCH ×4 (05:51→21:53)
[2022-12-13] MEDS: InsuLIN REG 1unit/0.01ml Soln (100units/ml) SC SCH ×4 (05:51→21:59)
[2022-12-13 08:10] VITALS: BP 139/50
[2022-12-13 09:00] VITALS: BP 139/50
[2022-12-13] MEDS: RIVAROXABAN 10 MG TAB PO SCH (10:54)
[2022-12-13] MEDS: BENAZEPRIL HCL 10 MG TAB PO SCH ×2 (10:54→21:52)
[2022-12-13] MEDS: CLOPIDOGREL BISULFATE 75 MG TAB PO SCH (10:55)
[2022-12-13] MEDS: METOPROLOL TARTRATE 50 MG TAB PO SCH ×2 (10:55→21:53)
[2022-12-13] MEDS: CILOSTAZOL 100 MG TAB PO SCH ×2 (10:55→21:52)
[2022-12-13] MEDS: amLODIPine BESYLATE 5 MG TAB PO SCH ×2 (10:56→21:52)
[2022-12-13] MEDS: HYDROmorphone HCL 2 MG/ML VL/or syr IV PRN (12:36)
[2022-12-13 13:00] VITALS: BP_SYST 131; BP_SYST 157; BP_DIAS 45; BP_DIAS 53
[2022-12-13 17:00] VITALS: BP 131/53
[2022-12-13 18:43] LABS: INR 1.06 (0.9-1.15); Partial Thromboplastin Time 28.1 sec (24.6-33.4)
[2022-12-13] MEDS: ATORVASTATIN 20 MG TAB PO SCH (21:52)
[2022-12-13 22:00] VITALS: BP 100/51
[2022-12-14] VITALS (30 sets, daily range): BP systolic 78–143; BP diastolic 26–49
[2022-12-14] MEDS: HYDROmorphone HCL 2 MG/ML VL/or syr IV PRN ×2 (01:16→19:40)
[2022-12-14] MEDS: GABAPENTIN 100 MG CAP PO SCH ×3 (05:49→22:51)
[2022-12-14] MEDS: InsuLIN REG 1unit/0.01ml Soln (100units/ml) SC SCH ×3 (05:56→22:55)
[2022-12-14] MEDS: ACCU-CHEK COMFORT CURVE STRIP VI SCH ×3 (05:56→22:53)
[2022-12-14 06:55] LABS: Basophils # (auto) 0 10 ^3/uL (0-0.2); Basophils % (auto) 0.4 % (0.0-2.0); Eosinophils # (auto) 0.6 10 ^3/uL (0-0.8); Eosinophils % (auto) 5.6 % (0.0-7.0); Hematocrit 29.5 % (36.0-46.0); Hemoglobin 9.7 g/dL (12.2-16.2); Lymphocytes # (auto) 2.8 10 ^3/uL (0.4-5.4); Lymphocytes % (auto) 26.3 % (10.0-50.0); Mean Corpuscular Hemoglobin 28.2 pg (28.0-32.0); Mean Corpuscular Volume 85.4 fL (80.0-100.0); Monocytes # (auto) 1.2 10 ^3/uL (0-1.3); Monocytes % (auto) 11.3 % (0.0-12.0); Neutrophils % (auto) 56.4 % (37.0-80.0); Nucleated Red Blood Cells % 0.1 %; Red Blood Cells 3.45 10^6/uL (4.0-5.20); White Blood Cell 10.7 10^3/uL (4.4-10.8)
[2022-12-14] MEDS: SOD CHL 0.45% 1,000 ML IV SCH ×2 (07:05→19:46)
[2022-12-14 07:06] LABS: BUN/Creatinine Ratio 15.8 (10.0-20.0); Calcium 8.4 mg/dL (8.5-10.1); Potassium 4.1 mmol/L (3.5-5.1)
[2022-12-14 07:12] LABS: Red Cell Distribution Width 20.7 % (11.8-14.3)
[2022-12-14] MEDS: amLODIPine BESYLATE 5 MG TAB PO SCH (09:30)
[2022-12-14] MEDS: METOPROLOL TARTRATE 50 MG TAB PO SCH (09:30)
[2022-12-14] MEDS: BENAZEPRIL HCL 10 MG TAB PO SCH (09:30)
[2022-12-14] MEDS ORDERED: SODIUM CHLORIDE 0.9% 500 ML IV ONE ×2 (09:45)
[2022-12-14] MEDS: CILOSTAZOL 100 MG TAB PO SCH ×2 (09:46→22:52)
[2022-12-14] MEDS: CLOPIDOGREL BISULFATE 75 MG TAB PO SCH (10:00)
[2022-12-14] MEDS ORDERED: LIDOCAINE 2%HCL (LOCAL ANESTH.) INJ 20ML MDV ONE (14:36)
[2022-12-14] MEDS ORDERED: IODIXANOL 320MG/ML 100ML BTL IV ONE ×3 (14:37→15:17)
[2022-12-14] MEDS ORDERED: HEPARIN IN NS 1000Units/500mL 1,500 ML ONE (14:37)
[2022-12-14] MEDS ORDERED: fentaNYL CITRATE 100 MCG/2 ML VL ONE ×2 (14:38→16:15)
[2022-12-14] MEDS ORDERED: ANGIOMAX 250 MG VIAL IV ONE (14:38)
[2022-12-14] MEDS ORDERED: MIDAZOLAM HCL 2MG/2ML 2ml VIAL (1mg/ml) ONE ×2 (14:39→16:16)
[2022-12-14] MEDS ORDERED: SODIUM CHL 0.9% 50 ML ONE (14:39)
[2022-12-14] MEDS ORDERED: hydrALAZINE HCL 20 MG/ML VL ONE (16:49)
[2022-12-14] MEDS ORDERED: PHENYLEPHRINE HCL 10 MG/ML VL ONE (17:21)
[2022-12-14] MEDS: PHENYLEPHRINE IV 250 ML IV SCH (19:21)
[2022-12-14] MEDS: METOPROLOL TARTRATE 25 MG TAB PO SCH (22:00)
[2022-12-14] MEDS: ATORVASTATIN 20 MG TAB PO SCH (22:52)
[2022-12-14] MEDS: RIVAROXABAN 10 MG TAB PO SCH (22:57)
[2022-12-15] VITALS (55 sets, daily range): BP systolic 84–174; BP diastolic 32–64
[2022-12-15] MEDS: HYDROmorphone HCL 2 MG/ML VL/or syr IV PRN ×3 (01:54→22:08)
[2022-12-15] MEDS: PHENYLEPHRINE IV 250 ML IV SCH ×3 (02:50→19:30)
[2022-12-15] MEDS: GABAPENTIN 100 MG CAP PO SCH ×3 (06:26→21:50)
[2022-12-15] MEDS: ACCU-CHEK COMFORT CURVE STRIP VI SCH ×4 (06:28→21:52)
[2022-12-15] MEDS: InsuLIN REG 1unit/0.01ml Soln (100units/ml) SC SCH ×4 (06:29→21:58)
[2022-12-15 08:36] LABS: Basophils # (auto) 0 10 ^3/uL (0-0.2); Basophils % (auto) 0.2 % (0.0-2.0); Eosinophils # (auto) 0.1 10 ^3/uL (0-0.8); Eosinophils % (auto) 1.3 % (0.0-7.0); Hemoglobin 8.7 g/dL (12.2-16.2); Lymphocytes # (auto) 2.3 10 ^3/uL (0.4-5.4); Lymphocytes % (auto) 22.2 % (10.0-50.0); Mean Corpuscular Hemoglobin 28.2 pg (28.0-32.0); Mean Corpuscular Hgb Conc. 33.5 g/dL (32.0-36.0); Mean Corpuscular Volume 84.1 fL (80.0-100.0); Monocytes # (auto) 1.3 10 ^3/uL (0-1.3); Monocytes % (auto) 12.3 % (0.0-12.0); Neutrophils # (auto) 6.5 10 ^3/uL (1.6-8.6); Red Cell Distribution Width 20.4 % (11.8-14.3); White Blood Cell 10.2 10^3/uL (4.4-10.8)
[2022-12-15] MEDS: SOD CHL 0.45% 1,000 ML IV SCH ×2 (08:42→20:59)
[2022-12-15 08:43] LABS: Calcium 7.6 mg/dL (8.5-10.1); Potassium 3.8 mmol/L (3.5-5.1)
[2022-12-15 08:49] LABS: Albumin 2.7 g/dL (3.4-5.0); Bilirubin, Total 0.3 mg/dL (0.2-1.0); Total Protein 5.6 g/dL (6.4-8.2)
[2022-12-15] MEDS: KETOROLAC TROMETH 30 MG/ML 1ML VIAL IV PRN ×2 (09:59→23:49)
[2022-12-15] MEDS: CLOPIDOGREL BISULFATE 75 MG TAB PO SCH (09:59)
[2022-12-15] MEDS: METOPROLOL TARTRATE 25 MG TAB PO SCH (10:00)
[2022-12-15] MEDS: CILOSTAZOL 100 MG TAB PO SCH ×2 (10:30→21:51)
[2022-12-15] MEDS: RIVAROXABAN 10 MG TAB PO SCH ×2 (10:30→21:51)
[2022-12-15] MEDS ORDERED: HYDROmorphone HCL 2 MG/ML VL/or syr ONE (10:34)
[2022-12-15] MEDS: ATORVASTATIN 20 MG TAB PO SCH (21:50)
[2022-12-16] VITALS (24 sets, daily range): BP systolic 88–155; BP diastolic 43–68
[2022-12-16] MEDS: METOPROLOL TARTRATE 25 MG TAB PO SCH ×3 (00:35→22:00)
[2022-12-16] MEDS: PHENYLEPHRINE IV 250 ML IV SCH (03:50)
[2022-12-16] MEDS: HYDROcodone-ACET 5/325MG TAB PO PRN ×4 (04:10→19:48)
[2022-12-16] MEDS: HYDROmorphone HCL 2 MG/ML VL/or syr IV PRN (06:14)
[2022-12-16] MEDS: GABAPENTIN 100 MG CAP PO SCH ×3 (06:15→22:09)
[2022-12-16] MEDS: ACCU-CHEK COMFORT CURVE STRIP VI SCH ×4 (06:43→22:27)
[2022-12-16] MEDS: InsuLIN REG 1unit/0.01ml Soln (100units/ml) SC SCH ×4 (06:44→22:28)
[2022-12-16 07:26] LABS: Basophils # (auto) 0 10 ^3/uL (0-0.2); Eosinophils # (auto) 0.4 10 ^3/uL (0-0.8); Eosinophils % (auto) 4.7 % (0.0-7.0); Hematocrit 23.3 % (36.0-46.0); Lymphocytes # (auto) 2.2 10 ^3/uL (0.4-5.4); Neutrophils # (auto) 5.6 10 ^3/uL (1.6-8.6); White Blood Cell 9.2 10^3/uL (4.4-10.8)
[2022-12-16 07:29] LABS: Basophils % (auto) 0.3 % (0.0-2.0); Hemoglobin 7.6 g/dL (12.2-16.2); Lymphocytes % (auto) 23.9 % (10.0-50.0); Mean Corpuscular Hemoglobin 27.7 pg (28.0-32.0); Mean Corpuscular Hgb Conc. 32.8 g/dL (32.0-36.0); Mean Corpuscular Volume 84.6 fL (80.0-100.0); Monocytes % (auto) 10.6 % (0.0-12.0); Neutrophils % (auto) 60.5 % (37.0-80.0); Nucleated Red Blood Cells % 0.1 %; Red Blood Cells 2.76 10^6/uL (4.0-5.20); Red Cell Distribution Width 20.1 % (11.8-14.3)
[2022-12-16 07:49] LABS: Potassium 4.4 mmol/L (3.5-5.1)
[2022-12-16 08:00] LABS: Albumin 2.3 g/dL (3.4-5.0); BUN/Creatinine Ratio 23.8 (10.0-20.0); Bilirubin, Total 0.4 mg/dL (0.2-1.0); Calcium 7.5 mg/dL (8.5-10.1); Total Protein 5.1 g/dL (6.4-8.2)
[2022-12-16] MEDS: SODIUM CHLORIDE 0.9% 1,000 ML IV SCH ×2 (08:30→22:09)
[2022-12-16] MEDS: CILOSTAZOL 100 MG TAB PO SCH ×2 (09:54→22:09)
[2022-12-16] MEDS: CLOPIDOGREL BISULFATE 75 MG TAB PO SCH (09:54)
[2022-12-16] MEDS: RIVAROXABAN 10 MG TAB PO SCH ×2 (09:55→22:07)
[2022-12-16 16:44] LABS: Calcium 7.6 mg/dL (8.5-10.1); Potassium 4.2 mmol/L (3.5-5.1)
[2022-12-16 16:47] LABS: BUN/Creatinine Ratio 23.3 (10.0-20.0)
[2022-12-16 20:28] LABS: BUN/Creatinine Ratio 21.8 (10.0-20.0); Calcium 7.7 mg/dL (8.5-10.1); Potassium 4.2 mmol/L (3.5-5.1)
[2022-12-16] MEDS: ATORVASTATIN 20 MG TAB PO SCH (22:08)
[2022-12-17] VITALS (19 sets, daily range): BP systolic 106–167; BP diastolic 38–68
[2022-12-17] MEDS: HYDROcodone-ACET 5/325MG TAB PO PRN ×3 (00:45→14:19)
[2022-12-17 04:36] LABS: BUN/Creatinine Ratio 24.7 (10.0-20.0); Calcium 7.5 mg/dL (8.5-10.1); Potassium 4.3 mmol/L (3.5-5.1)
[2022-12-17] MEDS: InsuLIN REG 1unit/0.01ml Soln (100units/ml) SC SCH ×3 (06:04→17:47)
[2022-12-17] MEDS: ACCU-CHEK COMFORT CURVE STRIP VI SCH ×3 (06:04→17:46)
[2022-12-17] MEDS: GABAPENTIN 100 MG CAP PO SCH ×3 (06:04→21:41)
[2022-12-17] MEDS: RIVAROXABAN 10 MG TAB PO SCH ×2 (09:40→22:13)
[2022-12-17] MEDS: CLOPIDOGREL BISULFATE 75 MG TAB PO SCH (09:40)
[2022-12-17] MEDS: CILOSTAZOL 100 MG TAB PO SCH ×2 (09:41→21:41)
[2022-12-17] MEDS: METOPROLOL TARTRATE 25 MG TAB PO SCH ×2 (09:43→21:42)
[2022-12-17] MEDS: SODIUM CHLORIDE 0.9% 1,000 ML IV SCH (10:29)
[2022-12-17] MEDS: ATORVASTATIN 20 MG TAB PO SCH (21:41)
[2022-12-18] VITALS (9 sets, daily range): BP systolic 111–158; BP diastolic 32–88
[2022-12-18] MEDS: InsuLIN REG 1unit/0.01ml Soln (100units/ml) SC SCH ×4 (00:29→17:41)
[2022-12-18] MEDS: HYDROcodone-ACET 5/325MG TAB PO PRN ×2 (00:38→19:59)
[2022-12-18 06:07] LABS: BUN/Creatinine Ratio 22.2 (10.0-20.0); Calcium 8.3 mg/dL (8.5-10.1); Potassium 4.2 mmol/L (3.5-5.1)
[2022-12-18] MEDS: ACCU-CHEK COMFORT CURVE STRIP VI SCH ×4 (06:15→17:38)
[2022-12-18] MEDS: GABAPENTIN 100 MG CAP PO SCH ×3 (06:26→19:57)
[2022-12-18 08:28] LABS: Eosinophils # (auto) 0.4 10 ^3/uL (0-0.8); Monocytes # (auto) 0.6 10 ^3/uL (0-1.3); Neutrophils # (auto) 4.6 10 ^3/uL (1.6-8.6)
[2022-12-18 08:30] LABS: Basophils # (auto) 0.1 10 ^3/uL (0-0.2); Basophils % (auto) 0.9 % (0.0-2.0); Eosinophils % (auto) 5.8 % (0.0-7.0); Hematocrit 22.4 % (36.0-46.0); Lymphocytes # (auto) 1.6 10 ^3/uL (0.4-5.4); Lymphocytes % (auto) 21.9 % (10.0-50.0); Mean Corpuscular Hemoglobin 26.3 pg (28.0-32.0); Mean Corpuscular Hgb Conc. 30.9 g/dL (32.0-36.0); Mean Corpuscular Volume 84.9 fL (80.0-100.0); Monocytes % (auto) 8.6 % (0.0-12.0); Neutrophils % (auto) 62.8 % (37.0-80.0); Nucleated Red Blood Cells % 0.2 %; Red Blood Cells 2.64 10^6/uL (4.0-5.20); White Blood Cell 7.3 10^3/uL (4.4-10.8)
[2022-12-18 08:35] LABS: Hemoglobin 6.9 g/dL (12.2-16.2); Red Cell Distribution Width 20.3 % (11.8-14.3)
[2022-12-18] MEDS ORDERED: DOCUSATE SOD 100 MG CAP PO ONE (09:30)
[2022-12-18] MEDS: CLOPIDOGREL BISULFATE 75 MG TAB PO SCH (10:00)
[2022-12-18] MEDS: METOPROLOL TARTRATE 25 MG TAB PO SCH ×2 (10:19→19:58)
[2022-12-18] MEDS: CILOSTAZOL 100 MG TAB PO SCH ×2 (10:19→19:58)
[2022-12-18 11:36] LABS: Urine Bacteria FEW /hpf (None Seen); Urine Blood 3+ /uL (Negative); Urine Specific Gravity 1.006 (1.001-1.035); Urine WBC 3 /hpf (0 - 5)
[2022-12-18] MEDS: hydrALAZINE HCL 20 MG/ML VL IV PRN (13:46)
[2022-12-18] MEDS: ATORVASTATIN 20 MG TAB PO SCH (19:58)
[2022-12-19] MEDS: ACCU-CHEK COMFORT CURVE STRIP VI SCH ×5 (00:06→21:49)
[2022-12-19] MEDS: InsuLIN REG 1unit/0.01ml Soln (100units/ml) SC SCH ×5 (00:08→21:41)
[2022-12-19 05:00] VITALS: BP 128/38
[2022-12-19] MEDS: GABAPENTIN 100 MG CAP PO SCH ×3 (05:52→21:41)
[2022-12-19 06:27] LABS: Basophils # (auto) 0.1 10 ^3/uL (0-0.2); Basophils % (auto) 0.6 % (0.0-2.0); Eosinophils # (auto) 0.5 10 ^3/uL (0-0.8); Eosinophils % (auto) 5.6 % (0.0-7.0); Hematocrit 26.1 % (36.0-46.0); Hemoglobin 8.8 g/dL (12.2-16.2); Lymphocytes # (auto) 1.9 10 ^3/uL (0.4-5.4); Lymphocytes % (auto) 21.9 % (10.0-50.0); Mean Corpuscular Hemoglobin 28.4 pg (28.0-32.0); Mean Corpuscular Hgb Conc. 33.7 g/dL (32.0-36.0); Mean Corpuscular Volume 84.1 fL (80.0-100.0); Monocytes # (auto) 0.8 10 ^3/uL (0-1.3); Monocytes % (auto) 9.4 % (0.0-12.0); Neutrophils # (auto) 5.5 10 ^3/uL (1.6-8.6); Neutrophils % (auto) 62.5 % (37.0-80.0); Red Cell Distribution Width 19.3 % (11.8-14.3); White Blood Cell 8.8 10^3/uL (4.4-10.8)
[2022-12-19 09:00] VITALS: BP 154/49
[2022-12-19] MEDS: METOPROLOL TARTRATE 25 MG TAB PO SCH ×2 (09:05→21:43)
[2022-12-19] MEDS: CILOSTAZOL 100 MG TAB PO SCH ×2 (09:05→21:41)
[2022-12-19] MEDS: CLOPIDOGREL BISULFATE 75 MG TAB PO SCH (09:05)
[2022-12-19] MEDS ORDERED: LACTULOSE 20Gm/30ML SOLN PO ONE (12:30)
[2022-12-19 13:00] VITALS: BP 113/45
[2022-12-19] MEDS: DOCUSATE SOD 100 MG CAP PO PRN (15:36)
[2022-12-19 16:56] VITALS: BP 153/49
[2022-12-19] MEDS: HYDROcodone-ACET 5/325MG TAB PO PRN (21:03)
[2022-12-19] MEDS: ATORVASTATIN 20 MG TAB PO SCH (21:41)
[2022-12-19 22:00] VITALS: BP 119/48
[2022-12-20 05:00] VITALS: BP 129/50
[2022-12-20] MEDS: GABAPENTIN 100 MG CAP PO SCH ×3 (06:12→22:18)
[2022-12-20] MEDS: HYDROcodone-ACET 5/325MG TAB PO PRN ×2 (06:12→16:45)
[2022-12-20] MEDS: ACCU-CHEK COMFORT CURVE STRIP VI SCH ×4 (06:13→22:33)
[2022-12-20] MEDS: InsuLIN REG 1unit/0.01ml Soln (100units/ml) SC SCH ×4 (06:13→22:29)
[2022-12-20 06:27] LABS: Basophils # (auto) 0 10 ^3/uL (0-0.2); Basophils % (auto) 0.4 % (0.0-2.0); Eosinophils # (auto) 0.5 10 ^3/uL (0-0.8); Eosinophils % (auto) 5.5 % (0.0-7.0); Hematocrit 26.7 % (36.0-46.0); Hemoglobin 8.9 g/dL (12.2-16.2); Lymphocytes # (auto) 1.9 10 ^3/uL (0.4-5.4); Lymphocytes % (auto) 22.8 % (10.0-50.0); Mean Corpuscular Hgb Conc. 33.4 g/dL (32.0-36.0); Mean Corpuscular Volume 83.8 fL (80.0-100.0); Monocytes # (auto) 0.9 10 ^3/uL (0-1.3); Monocytes % (auto) 10.7 % (0.0-12.0); Neutrophils % (auto) 60.6 % (37.0-80.0); Red Blood Cells 3.18 10^6/uL (4.0-5.20); White Blood Cell 8.3 10^3/uL (4.4-10.8)
[2022-12-20 06:42] LABS: BUN/Creatinine Ratio 13.3 (10.0-20.0); Calcium 8.2 mg/dL (8.5-10.1); Potassium 3.7 mmol/L (3.5-5.1)
[2022-12-20 08:45] VITALS: BP 121/45
[2022-12-20] MEDS: CLOPIDOGREL BISULFATE 75 MG TAB PO SCH (08:55)
[2022-12-20] MEDS: CILOSTAZOL 100 MG TAB PO SCH ×2 (08:55→22:18)
[2022-12-20] MEDS: PANTOPRAZOLE 40 MG TAB PO SCH (08:56)
[2022-12-20] MEDS: METOPROLOL TARTRATE 25 MG TAB PO SCH ×2 (08:56→22:31)
[2022-12-20] MEDS: HYDROmorphone HCL 2 MG/ML VL/or syr IV PRN ×2 (11:00→20:12)
[2022-12-20] MEDS: DOCUSATE SOD 100 MG CAP PO PRN (11:00)
[2022-12-20 12:49] VITALS: BP 102/36
[2022-12-20] MEDS: hydrALAZINE HCL 20 MG/ML VL IV PRN (16:45)
[2022-12-20 16:51] VITALS: BP 161/49
[2022-12-20 22:00] VITALS: BP 147/51
[2022-12-20] MEDS: ATORVASTATIN 20 MG TAB PO SCH (22:17)
[2022-12-21] MEDS: HYDROcodone-ACET 5/325MG TAB PO PRN (02:40)
[2022-12-21 05:00] VITALS: BP 146/31
[2022-12-21] MEDS: GABAPENTIN 100 MG CAP PO SCH ×2 (06:00→14:00)
[2022-12-21] MEDS: ACCU-CHEK COMFORT CURVE STRIP VI SCH ×2 (06:24→11:30)
[2022-12-21] MEDS: InsuLIN REG 1unit/0.01ml Soln (100units/ml) SC SCH ×2 (06:24→11:00)
[2022-12-21] MEDS ORDERED: ceFAZolin 1GM/50ML 50 ML IV ONE (06:59)
[2022-12-21] MEDS ORDERED: PROPOFOL 10 MG/ML 20 ML IV ONE (07:25)
[2022-12-21] MEDS ORDERED: HYDR2TAB58 PO (08:49)
[2022-12-21] MEDS ORDERED: CLOP75TA28 PO (08:52)
[2022-12-21 09:00] VITALS: BP 104/55
[2022-12-21] MEDS ORDERED: ASPirin 81 mg TAB PO SCH (10:00)
[2022-12-21] MEDS: PANTOPRAZOLE 40 MG TAB PO SCH (10:35)
[2022-12-21] MEDS: METOPROLOL TARTRATE 25 MG TAB PO SCH (10:35)
[2022-12-21] MEDS: CLOPIDOGREL BISULFATE 75 MG TAB PO SCH (10:35)
[2022-12-21] MEDS: CILOSTAZOL 100 MG TAB PO SCH (10:36)
[2022-12-21] MEDS: hydrALAZINE HCL 20 MG/ML VL IV PRN (12:15)
[2022-12-21 13:00] VITALS: BP 169/62
[2022-12-21 15:00] VITALS: BP 144/62
== END 2022-12-21 15:37 | disposition home or self-care (01) | DRG 182 ==
LOC: ER 04:04 → TELE 10:41 → TELE-CENTR 23:41 → ICU WEST 12-14 17:43 → TELE-EAST 12-17 21:58
PROVIDERS: ADMIT Registered Nurse; ATTEND Family Medicine
PROC: 047L3ZZ Dilation of Left Femoral Artery, Percutaneous Approach (ICD-10-PCS; 2022-12-12)
PROC: B41GYZZ Fluoroscopy of Left Lower Extremity Arteries using Other Contrast (ICD-10-PCS; 2022-12-12)
PROC: B41FYZZ Fluoroscopy of Right Lower Extremity Arteries using Other Contrast (ICD-10-PCS; 2022-12-12)
PROC: 047N3ZZ Dilation of Left Popliteal Artery, Percutaneous Approach (ICD-10-PCS; 2022-12-12)
PROC: 047U3ZZ Dilation of Left Peroneal Artery, Percutaneous Approach (ICD-10-PCS; 2022-12-12)
PROC: 047K3EZ Dilation of Right Femoral Artery with Two Intraluminal Devices, Percutaneous Approach (ICD-10-PCS; 2022-12-14)
PROC: B41FYZZ Fluoroscopy of Right Lower Extremity Arteries using Other Contrast (ICD-10-PCS; 2022-12-14)
PROC: 047P34Z Dilation of Right Anterior Tibial Artery with Drug-eluting Intraluminal Device, Percutaneous Approach (ICD-10-PCS; 2022-12-14)
PROC: 047M3DZ Dilation of Right Popliteal Artery with Intraluminal Device, Percutaneous Approach (ICD-10-PCS; 2022-12-14)
PROC: 05HF33Z Insertion of Infusion Device into Left Cephalic Vein, Percutaneous Approach (ICD-10-PCS; principal; 2022-12-18)
PROC: 30233N1 Transfusion of Nonautologous Red Blood Cells into Peripheral Vein, Percutaneous Approach (ICD-10-PCS; 2022-12-18)
PROC: B54NZZA Ultrasonography of Left Upper Extremity Veins, Guidance (ICD-10-PCS; 2022-12-18)
DX: E11.52 Type 2 diabetes mellitus with diabetic peripheral angiopathy with gangrene (principal); N17.0 Acute kidney failure with tubular necrosis; I11.0 Hypertensive heart disease with heart failure; I95.9 Hypotension, unspecified; I50.9 Heart failure, unspecified; D62 Acute posthemorrhagic anemia; E87.1 Hypo-osmolality and hyponatremia; E03.9 Hypothyroidism, unspecified; E78.00 Pure hypercholesterolemia, unspecified; E66.9 Obesity, unspecified; I25.10 Atherosclerotic heart disease of native coronary artery without angina pectoris; I65.23 Occlusion and stenosis of bilateral carotid arteries; G89.4 Chronic pain syndrome; I70.1 Atherosclerosis of renal artery; T50.8X5A Adverse effect of diagnostic agents, initial encounter; Z90.49 Acquired absence of other specified parts of digestive tract; Z95.5 Presence of coronary angioplasty implant and graft; Z83.3 Family history of diabetes mellitus; Z82.49 Family history of ischemic heart disease and other diseases of the circulatory system; Z68.25 Body mass index [BMI] 25.0-25.9, adult; Z79.02 Long term (current) use of antithrombotics/antiplatelets; Z79.82 Long term (current) use of aspirin
CPT/HCPCS: 36415; 37224; 37226; 37228; 37230; 70450; 71045; 71275; 75710; 75716; 76937; 80048; 80053; 80061; 81001; 82570; 82962; 83036; 83880; 83930; 83935; 84156; 84295; 84300; 84439; 84443; 84481; 84484; 84550; 85007; 85025; 85027; 85379; 85610; 85730; 86850; 86900; 86901; 86920; 87040; 87081; 87086; 87426; 93925; 93970; 96365; 96375; 99152; 99153; C1725; C1769; C1874; C1876; C9113; G0378; J0690; J1815; J1885; J2250; J2704; Q9967